=== PATIENT | female | born 1930 | race Caucasian/White ===

== ENCOUNTER 2017-10-13 08:02 | Inpatient (IN) | payer MEDICARE, MEDICAID ==
[2017-10-13] MEDS ORDERED: Sodium Chloride 0.9% 1,000 ML IV ONE ×3 (08:22→09:05)
[2017-10-13] MEDS ORDERED: Metoclopramide 5 mg/mL 2mL Vial IVP STA (08:29)
[2017-10-13] MEDS ORDERED: Piperacillin Sodium/Tazobact 3.375 gm Vial IV ONE (08:38)
[2017-10-13 08:45] LABS: % BASOPHILS 0.1 % (0.0-2.0); % EOSINOPHILS 0.9 % (0.0-5.0); % LYMPHOCYTES 16.6 % (20.0-50.0); % MONOCYTES 7.4 % (2.0-10.0); EOSINOPHILE ABSOLUTE 0.1 Th/cmm (0.1-0.4); LYMPHOCYTE ABSOLUTE 1.2 Th/cmm (1.5-3.0); MEAN CELL VOLUME 94.1 fl (81-100); MEAN CORPUSCULAR HEMOGLOBIN 29.3 pg (27.0-31.0); MEAN CORPUSCULAR HGB CONC 31.1 pg (28.0-36.0); MEAN PLATELET VOLUME 9.8 fl; MONOCYTE ABSOLUTE 0.6 Th/cmm (0.3-1.0); NEUTROPHILE ABSOLUTE 5.6 Th/cmm (1.8-8.0); RED BLOOD COUNT 2.24 Mil/cmm (3.80-5.20); RED CELL DISTRIBUTION WIDTH 19.2 % (11.5-20.0)
[2017-10-13 08:48] LABS: HEMOGLOBIN 6.6 gm/dL (12-16)
[2017-10-13 08:49] LABS: HEMATOCRIT 21.1 % (41.0-60); PLATELET COUNT 281 Th/cmm (150-400); WHITE BLOOD COUNT 7.5 Th/cmm (4.8-10.8)
[2017-10-13 08:55] LABS: ALB/GLOB RATIO 1.2 (1.0-1.8); ALBUMIN 3.5 gm/dL (3.7-5.3); ALKALINE PHOSPHATASE 134 U/L (34-104); ANION GAP 15.8 (7.0-16.0); BILIRUBIN,TOTAL 0.3 mg/dL (0.3-1.0); CALCIUM SERUM 10.1 mg/dL (8.6-10.3); CARBON DIOXIDE 30.1 mEq/L (21.0-31.0); CHLORIDE 109 mEq/L (98-107); CREATININE - SERUM 0.9 mg/dL (0.6-1.2); GLUCOSE 253 mg/dL (70-105); POTASSIUM SERUM 3.9 mEq/L (3.5-5.1); SGOT 46 U/L (13-39); SGPT/ALT 37 U/L (7-52); SODIUM SERUM 151 mEq/L (136-145); TOTAL PROTEIN,SERUM 6.5 gm/dL (6.0-8.3)
[2017-10-13 08:56] LABS: CHOLESTEROL 96 mg/dL (<200); HDL -HIGH DENSITY LIPOPROTEIN 27 mg/dL (23-92); TRIGLYCERIDES 245 mg/dL (<150)
[2017-10-13 08:59] LABS: BUN - UREA NITROGEN 91 mg/dL (7-25)
[2017-10-13] MEDS ORDERED: Pantoprazole 80 MG in Sodium Chloride 0.9% 100 ML IV SCH (09:00)
[2017-10-13 09:05] LABS: ALB/GLOB RATIO 1.3 (1.0-1.8); ALBUMIN 3.3 gm/dL (3.7-5.3); BILIRUBIN,DIRECT 0.1 mg/dL (0.0-0.2); BILIRUBIN,TOTAL 0.3 mg/dL (0.3-1.0); TOTAL PROTEIN,SERUM 5.9 gm/dL (6.0-8.3)
--- NOTE | 2017-10-13 09:16 | Diagnostic Imaging Report ---
CHEST X-RAY: AP view INDICATION: Pneumonia COMPARISON: None FINDINGS: Chronic lung changes are seen with no focal consolidation or effusions. Heart size is normal. Degenerative changes of the spine are noted. IMPRESSION: Chronic lung changes with no focal consolidation identified. Atherosclerotic vascular disease.
[2017-10-13] MEDS ORDERED: Morphine Sulfate 2 mg/mL 1mL Syr IVP PRN (09:20)
[2017-10-13] MEDS ORDERED: Mag Sulfate 2gm/50mL Premix 2 GM/50 ML BAG IV PRN (09:20)
--- NOTE | 2017-10-13 10:37 | History & Physical ---
ADMIT DATE: 10/13/2017 CHIEF COMPLAINT: Diabetes, out of control and severe decline. HISTORY OF PRESENT ILLNESS: The patient is an 86-year-old female, who is a patient of mine at shelter facility. She has a history of diabetes along with dysphagia, anxiety disorder, mood disorder and dementia and dyslipidemia. She was found to be extremely lethargic at the facility. Her blood sugars were over 500s and she declined as far as her mood and overall she started to become very weak. She was sent to the hospital where she was found to be in sepsis. PAST MEDICAL HISTORY: Significant for dyslipidemia, coronary artery disease, diabetes, and dementia. FAMILY HISTORY: Noncontributory. ALLERGIES: She is allergic to hydromorphone, morphine, and promethazine. SURGICAL HISTORY: She does have a history of cardiac surgery in the past. MEDICATIONS: All medications are reviewed and reconciled. She is mostly n.p.o. right now. She does have a history of G-tube. REVIEW OF SYSTEMS: GENERAL: Positive for recent fatigue, worsening confusion, and overall lethargy. HEENT: No recent head trauma, change in vision, taste, hearing, or smell. Oral, no recent pain or discharge. NECK: No recent tracheal deviation. CARDIOVASCULAR: She has history of hypertension and coronary artery disease. SKIN: No recent rashes. PSYCHIATRIC: She has history of depression and mood disorder. NEUROLOGIC: No history of recent stroke or seizure. MUSCULOSKELETAL: Positive history of unsteady gait. RESPIRATORY: No history of recent COPD exacerbation or asthma. PHYSICAL EXAMINATION: VITAL SIGNS: Temperature 97.9 degrees, heart rate is , respirations are 16, blood pressure 87/39 and currently in no pain. GENERAL: No acute distress. She is not awake or alert. She does awaken to physical stimulus, but goes back to sleep. HEENT: No acute issues. NECK: Trachea is midline. No JVD. CARDIOVASCULAR: She is in sinus tachycardia. ABDOMEN: Nontender, nondistended. RESPIRATORY: Decreased breath sounds bilaterally. PSYCHIATRIC: No psychosis or hallucinations. NEUROLOGIC: She is unable to participate. EXTREMITIES: There is no edema. LABORATORY DATA: Sodium 151, potassium 3.9, chloride 109, bicarb 30.1, BUN 91, creatinine 0.9. Lactic acid is 3.71. BNP is 118. White count is 7.5, hemoglobin 6.6, and platelet count is 281,000. ASSESSMENT: 1. Septic shock. 2. Hypovolemic hypernatremia. 3. Diabetes mellitus, out of control. 4. Mild malnutrition. 5. Metabolic encephalopathy. 6. Coronary artery disease. 7. Dyslipidemia. 8. Anemia of chronic illness. PLAN: The patient has been started on vancomycin and Zosyn. Dr. Hirsch has been consulted for ID and Dr. Jose C Hirsch has been consulted for Pulmonary. She has been ordered one unit PRBC. Follow up on blood cultures. I have ordered a UA as well. Chest x-ray seems to be negative. Continue fingerstick blood sugars. She will need aggressive hydration. She is going to the ICU. Prognosis is poor. [facility]# [id number]
--- NOTE | 2017-10-13 10:46 | ER Physician Documentation ---
DATE OF SERVICE: 10/13/2017 An 86-year-old female patient, triage nurse was Ronal, the patient's date of is 1930, allergy to MDX hydromorphone, MDX morphine, MDX promethazine. As to what these causes the patient is not known. The patient was seen by the financial institution president, our triage nurse who took the vital signs. Temperature was 97.9, pulse of 109, respirations 14, blood pressure was low 81/39. The patient was given 1000 mL of normal saline fluid to be running open. Height of 5 feet 5 inches, weight of 185 inches. HISTORY OF PRESENT ILLNESS: The history was obtained from the patient's nurse directly from the place where she came that the patient is a known diabetic patient, diabetic type 2. She has dementia. She has muscle weakness. She has evidence of dysphagia. [facility] our institution, [facility] because the patient had hyperglycemia. Initial blood sugar was 489 mg percentage at 6 o'clock in the morning, the patient was given 10 units of insulin, and after half an hour at 0630, repeated the blood sugar, it was 530, and hence by the instruction of the patient's doctor, the patient was referred to this institution, and immediately our nurse, Ronal was kind enough to get the blood sugar that was done, it was 255 mg percentage. I have also immediately went and examined the patient. Oxygen saturation of the patient was 97% and the patient has a G-tube feeding for which she gets a feeding. The patient is not in a position to give any history. The patient brought in some records from [facility], at which time she was admitted on 06/15/2017. At that time, the patient was admitted by Leonardo Hardin D.O., doctor of osteopathic doctor. An 86-year-old female patient with CAD, dementia, multiple CVA, and the patient has altered mental status. The patient was living at the nursing facility and the patient was brought to that hospital, [facility]. The patient had a history of acute renal failure, elevated lactate of 4, she was in septic status and the patient was given several boluses and started on empiric antibiotics in the Emergency Room, and Dr. Hardin was covering for Dr. Chavez and advised that the patient to be admitted. The patient's other past history, this is taken from the records that I obtained from the other hospital showing that the patient has coronary artery disease. She is status post PCI, PCI stands for percutaneous coronary intervention, that means angioplasty, probably the patient has a stent, now it is almost 90+ percent, the patient has a stent placement done. The patient is known to have cerebrovascular accident. It seems the patient is bedbound. The patient has hypertensive heart disease, dementia, hypothyroidism, diabetes mellitus. PAST SURGICAL HISTORY: Includes history of cholecystectomy and . Insulin, the patient was normally getting 100 units of Levemir that is detemir 40 units subq at bedtime and coverage with 2, 4, 6, 8, 10 units from 150-202, 201-254, 251-306, 301-358, 351-410 units. Over 401, call doctor. It seems that the patient's medications 3 months ago, the patient was taking the following medications, which included melatonin 5 mg tablet, ferrous sulfate, potassium chloride, Xalatan eyedrops, Lasix 20 mg, and memantine 10 mg p.o. b.i.d. The patient was evaluated by me and the patient once again is not in a position to give any further history. REVIEW OF SYSTEMS: Could not be obtained because the patient is completely lethargic. She has eyeballs, which are sunken. She appears to be pale and she has a wish of her healthcare directive living will saying that "my children, grandchildren, and siblings including my prior spouse to give my goodbyes, I would like a Spiritism service with many andre, and my children are to decide my service details together. My personal belongings are to be divided between my children including my personal assets, money, ___. PHYSICAL EXAMINATION: GENERAL: The patient appears to be of lethargic, only responding to painful stimuli. She appears to be pale. Eyeballs are slightly bulging, but not exophthalmus is present. NECK: Neck veins are not distended. Carotids are normal, normal uplift without any bruit. EXTREMITIES: No cyanosis, petechia, ecchymosis. No edema over the legs. Legs have contractures. Patient's plantars are responding in bidirectional fashion, left one and right one sometimes is downgoing. The patient has no edema, no cyanosis, no petechia, ecchymosis. MUSCULOSKELETAL: On general physical exam, does not move any hands and there are no tremors are noted. There is no evidence of any external injury. There is no evidence of any fracture. There is no evidence of any meningeal signs. There is no evidence of any lymphadenopathy. CHEST: Reveals trachea to be central, decrease in air entry in both lungs, and few crackles heard in both lung cruz, but once again markedly decreased air entry, and despite telling loudly to the patient about taking a deep breath, she was hardly able to take a deep breath, so will get a chest x-ray to follow the patient's lung status. The patient's TSH level in the past was 2.05, which was within normal limits. At one point, her BUN was 41 and creatinine was 0.73 and this was close to 08/20/2017, that means more than 1-1/2 months ago, she had prerenal azotemia and her electrolytes showed sodium 138, potassium 4.4, chloride of 95, CO2 of 31,calcium 98, and BUN and creatinine ratio is high at 56.2. ___ was 6.2, protein level of 6.8, bilirubin direct was 0.10 and albumin was 3.6. We ordered EKG level, let me read the EKG for you, EKG shows normal sinus rhythm and there is a left axis deviation, not definitely left anterior fascicular block is seen, there are T-wave changes seen from V1, V2 are inverted and minor nonspecific ST changes seen, could be compatible with ischemia, and anterior wall also looks like there is almost evidence of low voltage, perhaps secondary to hypothyroidism. The patient on examination of the abdomen is soft, benign, and negative. Wearing a diaper. The patient has a G-tube in place and liver and spleen not enlarged. No free fluid in the abdominal cavity. Central nervous system is as I mentioned earlier. Genitourinary system, there is no tenderness at the costovertebral angle noted. The patient's history from other places was reviewed and diagnosis with dementia and also will be mentioned the final diagnosis. There is no evidence of any peripheral vascular disease. Peripheral pulses are faint, but present. Peripheral vascular disease may be present, but no deep vein thrombophlebitis is seen. No cellulitis is noted. There is no evidence of any fracture or bleeding, etc. FINAL DIAGNOSES: The patient has uncontrolled diabetes mellitus, most likely secondary to infection, may be urinary tract infection, may be pneumonia, it is more likely probability. Other diagnoses includes the patient is comatose, the patient has dehydration, the patient has prerenal azotemia in the past, so right now also looks like she may be in prerenal azotemia, looks like the patient may be in sepsis. She has a history of cerebrovascular accident, history of hypertension, but right now the blood pressure is 81, so she has hypotension. She is known to have hypothyroidism, but I do not see that she is getting any thyroid medication. She has dysphagia. I am not sure why she has dysphagia. In the past, she has unsteady gait, but I do not think that the patient is currently in a condition to walk and she has muscle weakness and dysphagia. It is probable that the patient may be having gastroesophageal reflux disease and gastritis, so we will give the patient some Protonix 40 mg a day through the G-tube and the patient will need admission to the hospital. Other labs workup has been ordered. So, that is the final diagnoses and we will wait for the lab results to come, once the lab results come, I will dictate the addendum report. ADDENDUM FOLLOWUP ADDENDUM REPORT I just got the lab results; sodium 151, potassium 3.9, chloride is 109, CO2 is 33.1, anion gap is 15.8, glucose is 253, and BUN is 91. Albumin is 3.5. AST is 46, ALT is 37, alkaline phosphatase is 134. Lipid profile shows cholesterol is 96, triglycerides are 245, HDL is 27, and LDL is 40. Magnesium is 2.6. Lactic acid is 3.7. BNP is 118. Albumin is 3. The patient's neutrophils were 75. FINAL DIAGNOSES: 1. Septic shock with lactic acidosis. 2. Prerenal azotemia. 3. Anemia, most likely be secondary to either upper gastrointestinal bleeding. We will check the stool for occult blood and we will aspirate the gastric contents from the G-tube and if needed upper endoscopy will be done and the patient will get 2 units of blood. The patient is getting 200 mL of fluid per hour. The patient might need at least 3 liters of fluid to my knowledge and more as per Dr. Chavez. Blood transfusion has been started, one unit has been given. The patient might need another 2 units of blood minimum and magnesium which is 2.6 will definitely fall; and antibiotic, I have told them to give the patient as much as fast as possible. The patient's other diagnoses are dementia, hypertension, hypothyroidism, and all other diagnoses that were mentioned earlier holds true. The patient's other diagnoses includes dementia, muscle weakness and history of hypertension, history of PCI. The patient has G-tube in place and the patient had anemia before, the patient had renal failure, but the BUN was less than 40 at that time, little more than 35. Dr. Chavez was called, he is right here, kind enough to come right away and see the patient and admit the patient under his service. He will admit the patient in the ICU and thanks to all my nurses here to help me to take care of this patient. JOB# [id number]
[2017-10-13] MEDS: Sodium Chloride 0.45% 1,000 ML IV SCH ×2 (11:00→16:52)
[2017-10-13 11:14] LABS: MAGNESIUM 2.6 mg/dL (1.9-2.7)
[2017-10-13] MEDS: INSULIN ASPART SLIDING SCALE 100 UNITS/ML UNIT SUBQ SCH ×3 (11:45→21:04)
[2017-10-13 12:56] VITALS: BP 97/51
[2017-10-13] MEDS ORDERED: VTE Chemical Prophylaxis Screen/Admission MC PRN (14:00)
[2017-10-13] MEDS: Pantoprazole 80 MG in Sodium Chloride 0.9% 100 ML IV SCH (14:20)
--- NOTE | 2017-10-13 14:31 | Transfer Summary ---
DATE OF TRANSFER: 10/13/2017 ADDENDUM FOLLOWUP ADDENDUM REPORT I just got the lab results; sodium 151, potassium 3.9, chloride is 109, CO2 is 33.1, anion gap is 15.8, glucose is 253, and BUN is 91. Albumin is 3.5. AST is 46, ALT is 37, alkaline phosphatase is 134. Lipid profile shows cholesterol is 96, triglycerides are 245, HDL is 27, and LDL is 40. Magnesium is 2.6. Lactic acid is 3.7. BNP is 118. Albumin is 3. The patient's neutrophils were 75. FINAL DIAGNOSES: 1. Septic shock with lactic acidosis. 2. Prerenal azotemia. 3. Anemia, most likely be secondary to either upper gastrointestinal bleeding. We will check the stool for occult blood and we will aspirate the gastric contents from the G-tube and if needed upper endoscopy will be done and the patient will get 2 units of blood. The patient is getting 200 mL of fluid per hour. The patient might need at least 3 liters of fluid to my knowledge and more as per Dr. Chavez. Blood transfusion has been started, one unit has been given. The patient might need another 2 units of blood minimum and magnesium which is 2.6 will definitely fall; and antibiotic, I have told them to give the patient as much as fast as possible. The patient's other diagnoses are dementia, hypertension, hypothyroidism, and all other diagnoses that were mentioned earlier holds true. The patient's other diagnoses includes dementia, muscle weakness and history of hypertension, history of PCI. The patient has G-tube in place and the patient had anemia before, the patient had renal failure, but the BUN was less than 40 at that time, little more than 35. Dr. Chavez was called, he is right here, kind enough to come right away and see the patient and admit the patient under his service. He will admit the patient in the ICU and thanks to all my nurses here to help me to take care of this patient. JOB# [id number]
[2017-10-13 17:38] LABS: URINE BILIRUBIN NEGATIVE (NEGATIVE); URINE BLOOD NEGATIVE (NEGATIVE); URINE GLUCOSE (UA) NEGATIVE (NEGATIVE); URINE KETONE NEGATIVE (NEGATIVE); URINE LEUKOCYTE ESTERASE NEGATIVE (NEGATIVE); URINE MICROSCOPIC INDICATED? YES; URINE NITRATE NEGATIVE (NEGATIVE); URINE PROTEIN NEGATIVE (NEGATIVE); URINE SOURCE CATH; URINE UROBILINOGEN 0.2 E.U./dL (0.2 - 1.0)
[2017-10-13 17:47] LABS: URINE CLARITY CLEAR (CLEAR); URINE COLOR YELLOW
[2017-10-13 17:48] LABS: URINE BACTERIA NONE SEEN /hpf (NONE SEEN); URINE EPITHELIAL CELLS NONE SEEN /lpf (FEW); URINE RBC NONE SEEN /hpf (0-5); URINE WBC NONE SEEN /hpf (0-5)
[2017-10-13] MEDS ORDERED: Magnesium Hydroxide (MOM) 30 mL UDC PO ONE (17:54)
[2017-10-13] MEDS ORDERED: Lactulose 10 Gm/15 mL 30mL UDC PO ONE (18:00)
[2017-10-13 19:49] LABS: % BASOPHILS 0.1 % (0.0-2.0); % EOSINOPHILS 2.3 % (0.0-5.0); % MONOCYTES 6.6 % (2.0-10.0); EOSINOPHILE ABSOLUTE 0.1 Th/cmm (0.1-0.4); LYMPHOCYTE ABSOLUTE 1.1 Th/cmm (1.5-3.0); MEAN CELL VOLUME 93.9 fl (81-100); MEAN CORPUSCULAR HEMOGLOBIN 29.4 pg (27.0-31.0); MEAN CORPUSCULAR HGB CONC 31.3 pg (28.0-36.0); MEAN PLATELET VOLUME 9.3 fl; MONOCYTE ABSOLUTE 0.4 Th/cmm (0.3-1.0); NEUTROPHILE ABSOLUTE 4.6 Th/cmm (1.8-8.0); RED BLOOD COUNT 2.56 Mil/cmm (3.80-5.20); RED CELL DISTRIBUTION WIDTH 16.3 % (11.5-20.0); WHITE BLOOD COUNT 6.2 Th/cmm (4.8-10.8)
[2017-10-13 19:50] LABS: HEMOGLOBIN 7.5 gm/dL (12-16)
[2017-10-13 19:51] LABS: HEMATOCRIT 24.1 % (41.0-60)
[2017-10-13 19:52] LABS: PLATELET COUNT 191 Th/cmm (150-400)
[2017-10-13 19:59] LABS: ANION GAP 10.8 (7.0-16.0); BUN - UREA NITROGEN 63 mg/dL (7-25); CALCIUM SERUM 7.8 mg/dL (8.6-10.3); CARBON DIOXIDE 23.8 mEq/L (21.0-31.0); CHLORIDE 117 mEq/L (98-107); CREATININE - SERUM 0.7 mg/dL (0.6-1.2); POTASSIUM SERUM 3.6 mEq/L (3.5-5.1); SODIUM SERUM 148 mEq/L (136-145)
[2017-10-13 20:00] LABS: GLUCOSE 143 mg/dL (70-105)
[2017-10-13] MEDS: D5-0.45NS 1,000 ML IV SCH (21:35)
[2017-10-14] MEDS: Pantoprazole 80 MG in Sodium Chloride 0.9% 100 ML IV SCH ×2 (00:20→09:40)
[2017-10-14 02:12] LABS: % BASOPHILS 0.1 % (0.0-2.0); % EOSINOPHILS 2.4 % (0.0-5.0); % LYMPHOCYTES 15.4 % (20.0-50.0); % MONOCYTES 6.1 % (2.0-10.0); EOSINOPHILE ABSOLUTE 0.1 Th/cmm (0.1-0.4); HEMOGLOBIN 8.9 gm/dL (12-16); LYMPHOCYTE ABSOLUTE 0.7 Th/cmm (1.5-3.0); MEAN CELL VOLUME 84.4 fl (81-100); MEAN CORPUSCULAR HEMOGLOBIN 26.4 pg (27.0-31.0); MEAN CORPUSCULAR HGB CONC 31.2 pg (28.0-36.0); MONOCYTE ABSOLUTE 0.3 Th/cmm (0.3-1.0); NEUTROPHILE ABSOLUTE 3.7 Th/cmm (1.8-8.0); PLATELET COUNT 172 Th/cmm (150-400); RED BLOOD COUNT 3.39 Mil/cmm (3.80-5.20); RED CELL DISTRIBUTION WIDTH 23.7 % (11.5-20.0)
[2017-10-14 02:15] LABS: HEMATOCRIT 28.7 % (41.0-60); WHITE BLOOD COUNT 4.8 Th/cmm (4.8-10.8)
--- NOTE | 2017-10-14 02:32 | Progress Notes ---
DATE: 10/13/2017 REASON FOR CONSULTATION: Help critically sick patient with multisystem issues. CONSULT NOTE: This is an 86-year-old female who is a patient of Dr. Chavez, lives in a convalescent home, and the patient basically was admitted up here because of: 1. Altered state of mind. 2. Sugar was very high. 3. She was quite obtunded as well as some possibly sepsis. Hence I was asked to see this patient for further care and necessary treatment. The patient is barely arousable, but meaningful information from the patient is not available, and she is moaning and groaning, but otherwise unremarkable. The patient has been bedridden, has some form of chronic encephalopathy in the patient including dementia, has a G-tube and also [place] diabetic mellitus and though meaningful history from the patient is not available, was found to have a sugar of 500 plus with extremely weak, more decrease in alertness; hence the patient was admitted for further care and necessary treatment. PAST MEDICAL HISTORY: History of dementia, history of Alzheimer's, history of mood swings issues. History of dyslipoproteinemia, history of coronary artery disease. ALLERGIC TO HYDROMORPHONE, MORPHINE, AND PROMETHAZINE. SURGICAL HISTORY: None at this particular time available PHYSICAL EXAMINATION: GENERAL: This is an elderly looking female, appears to be chronically sick looking, not in acute respiratory distress. VITAL SIGNS: The patient's recorded vitals are temperature is 96.6, blood pressure is 105/56, and saturation 100% on 2 liters. HEENT: Head is essentially unremarkable. Pupils seemingly reactive to light. Conjunctivae are quite pallor. Oral cavity shows very poor dental hygiene. Throat could not be seen very well. NECK: Veins not visualized. NECK: No palpable lymphadenitis. CHEST: Shows diminished air entry. Occasional secretory noise, otherwise unremarkable. ABDOMEN: Shows slightly distended G-tube. EXTREMITIES: Shows some flexion contraction with some edematous changes in all 4 extremities. LABORATORY DATA: The patient's laboratory studies shows white count is 7.5, hemoglobin 6.6, BUN is 91. Lactic acid 4.3 with sugar at this time was 523, and the patient's electrolytes show albumin is 3.3. Triglycerides 245. TSH is 8.43. Urine does show fairly clear with a positive occult blood testing. IMPRESSION: 1. The patient has significant dehydration secondary to severe hypoglycemia, ketone to be tested. 2. Severe constipation. 3. Severe anemia shows pattern is not clearcut. 4. Underlying dementia with dyslipoproteinemia. PLANS AND SUGGESTIONS: Appreciate excellent management of Dr. Chavez, will continue current rate IV. As the patient's CT indicates significant constipation, ____ which will not be cleaned by tap water. We will go for a strong laxity from the top. We agree with transfusion. We will continue sliding scale, will repeat some of the parameters back again tomorrow including lactic acid and see how it is, and we will be glad to follow along with you. JOB# [id number]
--- NOTE | 2017-10-14 02:56 | Consultation ---
DATE OF CONSULTATION: 10/13/2017 REFERRING PHYSICIAN: Dr. Chavez. REASON FOR CONSULTATION: Sepsis, septic shock. HISTORY OF PRESENT ILLNESS: The patient is an 86-year-old female with a past medical, coronary artery disease, status post replacement, dementia, diabetes mellitus type 2, brought in from nursing facility for generalized weakness. The patient was also performed paraplegic. On initial evaluation, the patient was hypotensive and sepsis workup was performed. Lactic acid was 4+. The patient was diagnosed with septic shock and was given in the ER and patient was started on vancomycin and Zosyn. The patient's blood pressure improved and ID consult was called for further antibiotic management. PAST MEDICAL HISTORY: Diabetes mellitus type 2, dementia, anemia. Uncontrolled diabetes. ALLERGIES: HYDROMORPHONE, WARFARIN. MEDICATIONS: As per medication reconciliation sheet. Antibiotic laird, the patient is on vancomycin and Zosyn. Review of systems were unable to obtain. SOCIAL HISTORY: The patient lives in a nursing facility. No history of smoking, alcohol or drug use. FAMILY HISTORY: Not available. REVIEW OF SYSTEMS: Unable to obtain, although the patient was hypotensive. No fever, no chills. No cough, no shortness of breath. PHYSICAL EXAMINATION: VITAL SIGNS: Shows temperature is 97.6, pulse 78, respirations 16, blood pressure 115/55. Oxygen saturation 100%. GENERAL: Appears uncomfortable, lying in bed. HEENT: Head is normocephalic, atraumatic. Oral cavity moist. [place] tongue. Eyes: Pallor is present, no icterus. Pupils PERRLA, EOMI. NECK: Supple, no JVD, no carotid bruit. Trachea in midline. CHEST: Bilateral breath sounds. No crackles or wheezing. HEART: S1, S2 within normal limits. Regular rhythm. No murmur, no gallop. ABDOMEN: Soft, nontender, nondistended. Bowel sounds present. EXTREMITIES: No cyanosis, no edema. NEUROLOGIC: Unresponsive, quite lethargic. LABORATORY DATA: Current lab shows WBC count is 6200, hemoglobin 7.5, hematocrit 24.1, platelets of 191,000. Sodium 148, potassium 3.6, chloride is 117, bicarb 24, bun is 66, creatinine 0.7, glucose 143. Lactic acid 1.28. Stool for occult blood culture is positive. Blood cultures are pending. Chest x-ray is negative. IMPRESSION: 1. Septic shock, improving. 2. Pneumonia, questionable. 3. Diabetes mellitus type, uncontrolled. 4. Dementia. 5. Azotemia. RECOMMENDATIONS: 1. We will continue vancomycin and Zosyn. 2. Followup on sepsis workup. JOB# [id number]
[2017-10-14] MEDS: D5-0.45NS 1,000 ML IV SCH ×3 (05:33→23:56)
[2017-10-14] MEDS: INSULIN ASPART SLIDING SCALE 100 UNITS/ML UNIT SUBQ SCH ×4 (06:31→21:05)
[2017-10-14 08:06] LABS: IRON LC 17 ug/dL (27-139); TIBC (LC) 343 ug/dL (250-450); UIBC 326 ug/dL (118-369)
[2017-10-14 08:33] LABS: ALB/GLOB RATIO 1.1 (1.0-1.8); ALBUMIN 2.6 gm/dL (3.7-5.3); ALKALINE PHOSPHATASE 56 U/L (34-104); ANION GAP 10.6 (7.0-16.0); BILIRUBIN,DIRECT 0.15 mg/dL (0.0-0.2); BILIRUBIN,TOTAL 0.4 mg/dL (0.3-1.0); BUN - UREA NITROGEN 39 mg/dL (7-25); CALCIUM SERUM 7.4 mg/dL (8.6-10.3); CARBON DIOXIDE 23.8 mEq/L (21.0-31.0); CHLORIDE 117 mEq/L (98-107); CREATININE - SERUM 0.6 mg/dL (0.6-1.2); MAGNESIUM 2.1 mg/dL (1.9-2.7); POTASSIUM SERUM 3.4 mEq/L (3.5-5.1); SGOT 35 U/L (13-39); SGPT/ALT 29 U/L (7-52); SODIUM SERUM 148 mEq/L (136-145); TOTAL PROTEIN,SERUM 4.9 gm/dL (6.0-8.3)
[2017-10-14 08:34] LABS: GLUCOSE 260 mg/dL (70-105)
[2017-10-14 08:39] LABS: pH 7.44 (7.35-7.45)
[2017-10-14 08:46] LABS: % BASOPHILS 0.1 % (0.0-2.0); % EOSINOPHILS 2.5 % (0.0-5.0); % LYMPHOCYTES 12.4 % (20.0-50.0); % MONOCYTES 3.6 % (2.0-10.0); % NEUTROPHILS 81.4 % (40.0-80.0); EOSINOPHILE ABSOLUTE 0.1 Th/cmm (0.1-0.4); HEMATOCRIT 28.6 % (41.0-60); HEMOGLOBIN 9.1 gm/dL (12-16); LYMPHOCYTE ABSOLUTE 0.7 Th/cmm (1.5-3.0); MEAN CELL VOLUME 84.5 fl (81-100); MEAN CORPUSCULAR HEMOGLOBIN 26.9 pg (27.0-31.0); MEAN CORPUSCULAR HGB CONC 31.9 pg (28.0-36.0); MEAN PLATELET VOLUME 9.7 fl; MONOCYTE ABSOLUTE 0.2 Th/cmm (0.3-1.0); NEUTROPHILE ABSOLUTE 4.6 Th/cmm (1.8-8.0); PLATELET COUNT 169 Th/cmm (150-400); RED BLOOD COUNT 3.39 Mil/cmm (3.80-5.20); RED CELL DISTRIBUTION WIDTH 22.8 % (11.5-20.0); WHITE BLOOD COUNT 5.6 Th/cmm (4.8-10.8)
[2017-10-14] MEDS ORDERED: Influenza Vaccine 0.5 mL Syr IM ONE (09:00)
--- NOTE | 2017-10-14 09:22 | Diagnostic Imaging Report ---
CHEST X-RAY: AP view INDICATION: Shortness of breath COMPARISON: Chest x-ray 10/13/2017 FINDINGS: Suboptimal lung volumes are noted. There is right mid lung density measuring up to 5 mm. No focal consolidation or effusions. Heart size is normal. Atherosclerosis is noted. IMPRESSION: No focal consolidation identified. Indeterminate Right midlung density measuring up to 5 mm. This may be due to an area of scarring or chronic parenchymal process, however, other pulmonary pathology and a small nodule cannot be excluded. Please correlate with older x-ray examinations, if available. Alternative, short-term follow-up CT chest with provide additional detail and assessment.
--- NOTE | 2017-10-14 09:33 | Diagnostic Imaging Report ---
CT abdomen and pelvis without intravenous contrast Indication: Distended abdomen increased stool Comparison: None, Technique: Axial images were obtained from the lung bases to the bilateral proximal femurs without IV contrast. Coronal reconstructions were made. total DLP: 561, CTDI11.8 FINDINGS: Hypoventilatory changes of the lung bases are noted. Assessment of the solid organs is limited due to lack of IV contrast. No evidence of focal hepatic lesions. There is mild haziness along the pancreaticoduodenal region. The patient is status post cholecystectomy. There is generalized mild prominence of the common bile duct measuring up to 1 cm. No focal splenic lesions. Calcifications along the pancreatic margin the likely due to splenic artery calcifications. No focal adrenal lesions. No evidence of hydronephrosis or nephrolithiasis. Egan catheter and pockets of gas are seen within the urinary bladder. There is severe distal fecal impaction with mass effect upon the urinary bladder. Mild diverticulosis is noted without evidence of diverticulitis. No evidence of appendicitis. A percutaneous gastric feeding tube is noted. Diffuse atherosclerotic vascular disease of the abdominal aorta and branches are noted. No evidence of free air or free fluid. Degenerative changes of spine and pelvis are noted. There is Probable osteopenia. IMPRESSION: Severe distal fecal impaction with mass effect upon the urinary bladder. Mild haziness along the pancreaticoduodenal margins. Inflammatory process in this region cannot be excluded. Please correlate patient's clinical findings and laboratory values. Diverticulosis without evidence of diverticulitis. Egan catheter pockets of gas in the urinary bladder. Percutaneous gastric feeding tube noted. Evidence of prior cholecystectomy. There is mild nonspecific prominence of the common bile duct may be related to patient's cholecystectomy procedure. Diffuse atherosclerotic vascular disease.
--- NOTE | 2017-10-14 09:40 | General Progress Note ---
Subjective - Review of Systems Service Date: 10/14/17 Subjective: Pt seen and eval. She's waking up now and starting to talk. No n,v,d or cp. BP improved. Did not require any vasopressors. No falls or sz. On iv fluids, now on D5-0.5ns. Stool OB positive. All anticoagulation is being held. GI is scheduling a scope. No sz. Afebrile. Status post 1 unit prbc, which was ordered in the ER. Has a GT, but no feedings right now. Objective - Results Result Diagrams: 10/14/17 08:05 10/14/17 08:05 Recent Labs: Laboratory Last Values WBC 5.6 Th/cmm (4.8-10.8) 10/14/17 08:05 RBC 3.39 Mil/cmm (3.80-5.20) L 10/14/17 08:05 Hgb 9.1 gm/dL (12-16) L 10/14/17 08:05 Hct 28.6 % (41.0-60) L 10/14/17 08:05 MCV 84.5 fl (81-100) 10/14/17 08:05 MCH 26.9 pg (27.0-31.0) L 10/14/17 08:05 MCHC Differential 31.9 pg (28.0-36.0) 10/14/17 08:05 RDW 22.8 % (11.5-20.0) H 10/14/17 08:05 Plt Count 169 Th/cmm (150-400) 10/14/17 08:05 MPV 9.7 fl 10/14/17 08:05 Neutrophils % 81.4 % (40.0-80.0) H 10/14/17 08:05 Lymphocytes % 12.4 % (20.0-50.0) L 10/14/17 08:05 Monocytes % 3.6 % (2.0-10.0) 10/14/17 08:05 Eosinophils % 2.5 % (0.0-5.0) 10/14/17 08:05 Basophils % 0.1 % (0.0-2.0) 10/14/17 08:05 Specimen Source Arterial 10/14/17 08:15 Sample Site RB 10/14/17 08:15 pH 7.44 (7.35-7.45) 10/14/17 08:15 pCO2 36.0 mmHg (35.0-45.0) 10/14/17 08:15 pO2 110.0 mmHg (80.0-100.0) H 10/14/17 08:15 HCO3 25.4 mEq/L (20.0-26.0) 10/14/17 08:15 Base Excess 0.6 mEq/L (-3.0-3.0) 10/14/17 08:15 O2 Saturation 98.0 % (92.0-100.0) 10/14/17 08:15 Joao Test NA 10/14/17 08:15 Vent Rate NA 10/14/17 08:15 Inspired O2 21 10/14/17 08:15 Tidal Volume NA 10/14/17 08:15 PEEP NA 10/14/17 08:15 Pressure (ins/psv/peep) NA 10/14/17 08:15 Critical Value SH 10/14/17 08:15 Sodium 148 mEq/L (136-145) H 10/14/17 08:05 Potassium 3.4 mEq/L (3.5-5.1) L 10/14/17 08:05 Chloride 117 mEq/L (98-107) H 10/14/17 08:05 Carbon Dioxide 23.8 mEq/L (21.0-31.0) 10/14/17 08:05 Anion Gap 10.6 (7.0-16.0) 10/14/17 08:05 BUN 39 mg/dL (7-25) H 10/14/17 08:05 Creatinine 0.6 mg/dL (0.6-1.2) 10/14/17 08:05 Est GFR ( Amer) TNP 10/14/17 08:05 Est GFR (Non-Af Amer) TNP 10/14/17 08:05 BUN/Creatinine Ratio 65.0 10/14/17 08:05 Glucose 260 mg/dL (70-105) H D 10/14/17 08:05 POC Glucose 275 MG/DL (70 - 105) H 10/14/17 06:27 Whole Bld Lactic Acid 1.91 mmol/L (0.60-1.99) 10/14/17 08:05 Calcium 7.4 mg/dL (8.6-10.3) L 10/14/17 08:05 Magnesium 2.1 mg/dL (1.9-2.7) 10/14/17 08:05 Iron 17 ug/dL (27-139) L 10/13/17 08:30 TIBC 343 ug/dL (250-450) 10/13/17 08:30 Iron Saturation 5 % (15-55) L 10/13/17 08:30 Unsaturated IBC 326 ug/dL (118-369) 10/13/17 08:30 Total Bilirubin 0.4 mg/dL (0.3-1.0) 10/14/17 08:05 Direct Bilirubin 0.15 mg/dL (0.0-0.2) 10/14/17 08:05 AST 35 U/L (13-39) 10/14/17 08:05 ALT 29 U/L (7-52) 10/14/17 08:05 Alkaline Phosphatase 56 U/L (34-104) 10/14/17 08:05 Ammonia 57 umol/L (16-53) H 10/14/17 08:05 B-Natriuretic Peptide 118.0 pg/mL (5.0-100.0) H 10/13/17 08:30 Total Protein 4.9 gm/dL (6.0-8.3) L 10/14/17 08:05 Albumin 2.6 gm/dL (3.7-5.3) L 10/14/17 08:05 Globulin 2.3 gm/dL 10/14/17 08:05 Albumin/Globulin Ratio 1.1 (1.0-1.8) 10/14/17 08:05 Triglycerides 245 mg/dL (<150) H 10/13/17 08:30 Cholesterol 96 mg/dL (<200) 10/13/17 08:30 LDL Cholesterol Direct 40 mg/dL (75-193) L 10/13/17 08:30 HDL Cholesterol 27 mg/dL (23-92) 10/13/17 08:30 Lipase 42 U/L (11-82) 10/14/17 08:05 TSH 8.23 uIU/ml (0.34-5.60) H 10/13/17 08:30 Urine Source CATH 10/13/17 09:45 Urine Color YELLOW 10/13/17 09:45 Urine Clarity CLEAR (CLEAR) 10/13/17 09:45 Urine pH 7.0 (4.6 - 8.0) 10/13/17 09:45 Ur Specific [place] 1.010 (1.005-1.030) 10/13/17 09:45 Urine Protein NEGATIVE mg/dL (NEGATIVE) 10/13/17 09:45 Urine Glucose (UA) NEGATIVE mg/dL (NEGATIVE) 10/13/17 09:45 Urine Ketones NEGATIVE mg/dL (NEGATIVE) 10/13/17 09:45 Urine Blood NEGATIVE (NEGATIVE) 10/13/17 09:45 Urine Nitrate NEGATIVE (NEGATIVE) 10/13/17 09:45 Urine Bilirubin NEGATIVE (NEGATIVE) 10/13/17 09:45 Urine Urobilinogen 0.2 E.U./dL (0.2 - 1.0) 10/13/17 09:45 Ur Leukocyte Esterase NEGATIVE (NEGATIVE) 10/13/17 09:45 Urine RBC NONE SEEN /hpf (0-5) 10/13/17 09:45 Urine WBC NONE SEEN /hpf (0-5) 10/13/17 09:45 Ur Epithelial Cells NONE SEEN /lpf (FEW) 10/13/17 09:45 Urine Bacteria NONE SEEN /hpf (NONE SEEN) 10/13/17 09:45 Stool Occult Blood POSITIVE (NEGATIVE) H 10/13/17 11:00 Blood Type O POSITIVE 10/13/17 10:36 Antibody Screen NEGATIVE 10/13/17 10:36 Crossmatch See Detail 10/13/17 10:36 - Physical Exam Vitals and I&O: Vital Signs Temp 97.1 F 10/14/17 04:00 Pulse 66 10/14/17 06:00 Resp 16 10/14/17 06:00 BP 109/56 10/14/17 06:00 Pulse Ox 100 10/14/17 06:00 Intake & Output 10/13/17 10/14/17 10/14/17 18:59 06:59 18:59 Intake Total 704.354 3823.833 Output Total 1000 Balance 833.333 482.833 Weight (lbs) 61.235 kg Intake: Intake, IV Amount 773.049 8586.833 D5-0.45NS 1,000 ml @ 125 995.833 mls/hr IV .Q8H [facility] Rx#: [id number] Pantoprazole 80 mg In 162 Sodium Chloride 0.9% 100 ml @ 10 mls/hr IV Q10H [facility] Rx#:[id number] Piperacillin Sodium/ 100 50 Tazobact 3.375 gm In Sodium Chloride 0.9% 50 ml @ 100 mls/hr IV Q6HR [facility] Rx#:[id number] Sodium Chloride 0.45% 1, 733.333 000 ml @ 125 mls/hr IV . Q8H [facility] Rx#:[id number] Blood Product 275 Output: Urine 1000 Other: # Bowel Movements 2 Stool Characteristics Black Black Active Medications: Current Medications Acetaminophen (Tylenol) 650 mg PO Q6H PRN PRN Reason: HEADACHE/TEMP ABOVE 100F Stop: 12/12/17 09:19 Magnesium Sulfate (Magnesium Sulfate Premix) 2 gm in 50 mls @ 25 mls/hr IV DAILY PRN PRN Reason: Magnesium level less than 1.6 Stop: 12/12/17 09:19 Vancomycin HCl 1 gm/ Sodium (Chloride) 250 mls @ 165 mls/hr IV Q24H [facility] Stop: 12/13/17 08:59 Last Admin: 10/14/17 09:11 Dose: 165 mls/hr Piperacillin Sod/Tazobactam (Sod 3.375 gm/ Sodium Chloride) 50 mls @ 100 mls/ hr IV Q6HR [facility] Stop: 12/12/17 11:59 Last Admin: 10/14/17 05:30 Dose: 100 mls/hr Pantoprazole Sodium 80 mg/ (Sodium Chloride) 100 mls @ 10 mls/hr IV Q10H [facility] Stop: 12/12/17 14:59 Last Infusion: 10/14/17 06:32 Dose: 10 mls/hr Dextrose/Sodium Chloride (D5-0.45ns) 1,000 mls @ 125 mls/hr IV .Q8H [facility] Stop: 12/12/17 20:31 Last Admin: 10/14/17 05:33 Dose: 125 mls/hr Insulin Aspart (Novolog Insulin Sliding Scale) 0 units SUBQ ACHS CADE PRN Reason: Protocol Stop: 12/12/17 11:29 Last Admin: 10/14/17 06:31 Dose: 6 units Magnesium Oxide (Mag-Oxide) 400 mg PO BID PRN PRN Reason: Mg less than 1.9 Stop: 12/12/17 09:19 Miscellaneous (Vancomycin Iv Per Pharmacy) 1 ea PRN PRN PRN Reason: PROTOCOL Stop: 12/12/17 09:17 Miscellaneous (Zosyn Iv Per Pharmacy) 1 ea PRN PRN PRN Reason: PROTOCOL Stop: 12/12/17 09:17 Miscellaneous (Vte [employer] Prophylaxis Screen/ Admission) 1 ea PRN PRN PRN Reason: PROTOCOL Stop: 12/12/17 13:59 Ondansetron HCl (Zofran) 4 mg IVP Q6H PRN PRN Reason: Nausea / Vomiting Stop: 12/12/17 09:19 Pneumococcal Polyvalent Vaccine (Pneumovax) 0.5 ml IM .ONCE ONE Stop: 10/14/17 10:01 General: No acute distress HEENT: Atraumatic, PERRLA, EOMI Neck: Supple, no JVD Cardiovascular: Regular rate, Normal S1, Normal S2 Lungs: Other (Decreased BS bl) Abdomen: Bowel sounds, Soft, no Tender, no Hepatomegaly Extremities: no Clubbing Neurological: Sensation intact Skin: no Rash, no Breakdown Psych/Mental Status: Other (No pyshosis) - Procedures Procedures: Procedures Procedure Code Date COLONOSCOPY AND BIOPSY 83519 03/14/12 COLONOSCOPY W/LESION REMOVAL 22319 03/14/12 EGD BIOPSY SINGLE/MULTIPLE 83701 03/14/12 ENDO RECTUM POLYPECTOMY 48.36 03/14/12 ENDOSC POLYPECTOMY OF LG INTEST 45.42 03/14/12 ESOPHAGOGASTRODUODENOSCOPY [EGD] W/CLOSED BIOPSY 45.16 03/14/12 LESION REMOVAL COLONOSCOPY 26850 03/14/12 PACKED CELL TRANSFUSION 99.04 03/14/12 Assessment/Plan - Assessment Assessment: Septic shock Hypovolemic Hypernatremia DM-OOC Mild Manlut Severe anemia with possible GI bleed ME CAD Dyslipid - Plan Plan: PT seen by ID, GI, and Pulm. On aggressive hydration. She's not on any vasopressors right now. GI scheduling EGD as stool OB is positive. Pt had a colonoscopy in may 2017 in [facility]. On Vanceo and Zosyn. On FSBS and riss. On iv d5-0.5ns and protonix drip. FU on chem 7 and cbc. FU on cultures. Nutritional Asmnt/Malnutr-PDOC - Dietary Evaluation Malnutrition Findings (Please click <Entered> for more info): Nutritional Asmnt/Malnutrition Start: 10/13/17 13: 06 Text: Status: Complete Freq: Document 10/13/17 13:06 [email or web address] (Rec: 10/13/17 13:17 IMANI JONATHON- [email or web address]) Nutritional Asmnt/Malnutrition Patient General Information Nutritional Screening High Risk Consult Diagnosis Septic shock Pertinent Medical Hx/Surgical Hx diabetes, dyslipidemia, CAD, dementia Subjective Information Consult received for wound present on admissino and marcus scale <12. Patient admitted from [facility] with hyperglycemia (489 BG, then 533). Patient lying in bed at time of visit. Current Diet Order/ Nutrition Support NPO Patient / S.O Not Indicated Pertinent Medications NOvolog, Mag-oxide, abx, zofran Pertinent Labs 10/13: Na 151, BUN 91, glucose 139-255, AST 43, albumin 3.3, TAG 245 Nutritional Hx/Data Height 1.65 m Height (Calculated Centimeters) 165.1 Current Weight (lbs) 61.235 kg Weight (Calculated Kilograms) 61.2 Weight (Calculated Grams) 76719.0 [place] Body Weight 125 % [place] Body Weight 108 Body Mass Index (BMI) 22.4 Recent Weight Change No Weight Status Approriate GI Symptoms GI Symptoms None Last BM None noted since admission Difficult in: None Food Allergies No Cultural/Ethnic/Mandaen Belief none indicated Skin Integrity/Comment: Marcus Estimated Nutritional Goals BEE in Kcals: Using Current wt Calories/Kcals/Kg 27-32 kcal/kg- using 61.3 kg Current body weight- sepsis Kcals Calculated ~1176-5031 kcal/day Protein: Using Current wt Protein g/k.2-1.5 gm/kg - Sepsis Protein Calculated ~75-92 gm/day Fluid: ml ~2401-8309 ml/day (1 ml/kcal) Nutritional Problem 2. Problem Problem Altered nutrition related lab values related to Etiology uncontrolled hyperglycemia aeb Signs/Symptoms: glucose 139-255, 1. Problem Problem Inadequate energy intake related to Etiology withholding of nutrition at this time with NPO diet order aeb Signs/Symptoms: meeting <25% of estimated nutrient needs. Intervention/Recommendation Comments 1. Due to hx dysphagia and Gtube, when medically appropriate, start Diabetisource AC at goal of 55 ml/hr to provide 1320 ml volume, 1584 kcal, 79 gm protein. 2. Adjust insulin regimen per MD for optimal glycemic control. Expected Outcomes/Goals Expected Outcomes/Goals meets >75% of estimated nutrient needs, improved skin integrity, nutrition related labs normalize, F/U HR 2-3 days 10/15-
[2017-10-14] MEDS ORDERED: Pneumococcal Vaccine 0.5 mL Vial IM ONE (10:00)
[2017-10-14 17:12] LABS: % BASOPHILS 1.2 % (0.0-2.0); % EOSINOPHILS 3.5 % (0.0-5.0); % MONOCYTES 3.5 % (2.0-10.0); % NEUTROPHILS 79.8 % (40.0-80.0); BASOPHILE ABSOLUTE 0.1 Th/cumm (0-0.2); EOSINOPHILE ABSOLUTE 0.2 Th/cmm (0.1-0.4); HEMATOCRIT 28.7 % (41.0-60); HEMOGLOBIN 9.3 gm/dL (12-16); LYMPHOCYTE ABSOLUTE 0.7 Th/cmm (1.5-3.0); MEAN CELL VOLUME 84.2 fl (81-100); MEAN CORPUSCULAR HEMOGLOBIN 27.1 pg (27.0-31.0); MEAN CORPUSCULAR HGB CONC 32.2 pg (28.0-36.0); MEAN PLATELET VOLUME 9.4 fl; MONOCYTE ABSOLUTE 0.2 Th/cmm (0.3-1.0); NEUTROPHILE ABSOLUTE 4.8 Th/cmm (1.8-8.0); PLATELET COUNT 184 Th/cmm (150-400); RED BLOOD COUNT 3.41 Mil/cmm (3.80-5.20); RED CELL DISTRIBUTION WIDTH 24.2 % (11.5-20.0)
[2017-10-14 20:41] LABS: A1C % 5.4 % (4.0-6.0)
--- NOTE | 2017-10-14 22:31 | Progress Notes ---
DATE: 10/14/2017 PULMONARY/CRITICAL CARE PROGRESS NOTE PROBLEM LIST: 1. Acute septicemia. 2. Acute severe hypoglycemia. 3. Constipation. 4. Underlying history of diabetes mellitus and history of dementia. SYMPTOMS: Nil. Feeling okay, though a little bit more verbal related to yesterday. According to RN, she had quite a big bowel movement and possibly schedule for EGD tomorrow. PHYSICAL EXAMINATION: VITAL SIGNS: Temperature is 97.1, blood pressure 106/56, saturation 100% on 2 liters. NECK: Veins not visualized. CHEST: Shows diminished air entry with occasional rhonchi. ABDOMEN: Much softer than yesterday. LABORATORY DATA: The patient's white count is 5.6, hemoglobin 9.1 after transfusion and the patient's pO2 is 110 and this is on room air. Sodium is 148, potassium is 3.3, and the patient's sugar is still labile. Stool occult blood one time is positive. IMPRESSION: The patient clinically appears to be stable, improving, though septic source is not clearcut, and so far everything is negative including MRSA of nares which has been negative. PLANS AND SUGGESTIONS: Okay with current treatment. Start ____ once cleared by nothing endoscopically and continue other treatment for the next 24-48 hours and go from there. JOB# [id number]
--- NOTE | 2017-10-15 01:35 | Consultation ---
DATE OF CONSULTATION: 10/14/2017 INPATIENT GASTROINTESTINAL CONSULTATION REASON FOR CONSULTATION: Anemia and melena. CONSULTING PHYSICIAN: Dr. Chavez. HISTORY OF PRESENT ILLNESS: The patient is an 86-year-old female with past medical history significant for type 2 diabetes, dysphagia, anxiety disorder, dementia, dyslipidemia, who was brought in from her nursing home facility with weakness. The patient was found to have blood sugars over 500 at the nursing facility as well as being more acutely weak than her usual state and thus she was brought into the Emergency Room. Once there, she was found to be hypotensive and has since been treated for septic shock with broad spectrum antibiotics. Additionally, admission lab values showed a hemoglobin of 6.8 and the nurses report showed that she had a melanotic stool and thus GI is asked for evaluation. Of note, the patient's family reports she had a colonoscopy performed in 05/2017 at [facility] and was told that she had polyps and hemorrhoids, but an EGD was not done there. PAST MEDICAL HISTORY: Dyslipidemia, coronary artery disease, type 2 diabetes, dementia, anxiety disorder. PAST SURGICAL HISTORY: Unknown at this time. FAMILY HISTORY: Noncontributory. ALLERGIES: Reports an allergy to hydromorphone, morphine, and promethazine. REVIEW OF SYSTEMS: Not possible given the patient's reduced mental status at this time. SOCIAL HISTORY: No documented history of alcoholism or illicit drug use. She is a resident of a nursing facility. CURRENT MEDICATIONS: Tylenol as needed, influenza vaccine, insulin as needed, magnesium oxide, vancomycin, Zosyn, Zofran as needed, PPI, pantoprazole drip. PHYSICAL EXAMINATION: VITAL SIGNS: Blood pressure is 109/56, pulse is 66 beats per minute, respiratory rate of 16, oxygenation 100%. GENERAL: The patient is lying flat in bed. She is alert and oriented x 0, no apparent distress. HEAD, EARS, EYES, NOSE, AND THROAT: Normocephalic appearing head. Pupils are equal and reactive to light. Extraocular muscles appear to be intact. She has temporal wasting. Dry mucous membranes. NECK: Supple. No JVD or thyromegaly or lymphadenopathy. CHEST: There are crackles at both bases. CARDIOVASCULAR: S1, S2 is present. Regular rate and rhythm. ABDOMEN: Soft, nontender to palpation. No obvious guarding, rebound, or distention. EXTREMITIES: Frail appearing. No pitting edema. Pulses are palpable. SKIN: No obvious jaundice or rashes. LABORATORY DATA: White blood cell count 4.8; hemoglobin 8.9, on admission was 6.8; platelet count is 172. Sodium 148, BUN 39, creatinine 0.6, total bilirubin 0.4, AST 35, ALT 29, albumin 2.6. IMAGING STUDIES: A CT abdomen and pelvis was performed and there was a preliminary read that shows severe distal fecal impaction, diverticulosis, status post cholecystectomy. There is a prominent CBD, mild haziness along the pancreaticoduodenal margin, questionable inflammatory process, and a Egan catheter. IMPRESSION: This is an 86-year-old female with past medical history of dementia, dysphagia with G-tube, anxiety disorder, coronary artery disease, who is admitted to the hospital with weakness, found to have septic shock, and anemia. 1. Anemia. 2. Septic shock. 3. Fecal impaction. 4. Melena. 5. Dementia. 6. Dysphagia with G-tube. DISCUSSION: The patient certainly appears to have presented hypotensive and in septic shock and has responded to fluid resuscitation and antibiotics at this point. She additionally had elevated glucose levels as well as a low hemoglobin. There is a report of black and tarry colored stool and thus it is feasible to consider an upper GI bleed in this instance. Lavage of the G-tube did not show any active bleeding at this time. The patient has responded well to 2 units of blood transfusion. Nevertheless, an EGD is indicated here. The patient already had a colonoscopy late last year. The son was concerned about a lower GI process especially given that the stool was black and not bright red. In terms of the CT findings, she does have a fecal impaction as well as some inflammatory process around the duodenum and pancreas. This may represent duodenitis, peptic ulcer disease, or even pancreatitis. RECOMMENDATIONS: 1. We will add on the lipase to evaluate for any pancreatitis. 2. Continue broad-spectrum antibiotics. 3. We will plan for EGD tomorrow to investigate upper GI bleed in the ICU. 4. Continue PPI drip at this time. 5. Cycle CBC and transfuse to keep hemoglobin above 7. 6. LFTs are normal. Thus, she is unlikely to have a biliary obstruction even though the CT findings noted prominent CBD. I will continue to follow. Thank you for allowing me to participate in this patient's care. Please call with any further questions. JOB# [id number]
[2017-10-15] MEDS: Pantoprazole 80 MG in Sodium Chloride 0.9% 100 ML IV SCH (04:12)
[2017-10-15] MEDS: INSULIN ASPART SLIDING SCALE 100 UNITS/ML UNIT SUBQ SCH ×4 (07:28→22:49)
[2017-10-15 08:02] LABS: % BASOPHILS 0.5 % (0.0-2.0); % EOSINOPHILS 2.4 % (0.0-5.0); % MONOCYTES 3.6 % (2.0-10.0); % NEUTROPHILS 77.5 % (40.0-80.0); EOSINOPHILE ABSOLUTE 0.2 Th/cmm (0.1-0.4); HEMATOCRIT 30.1 % (41.0-60); HEMOGLOBIN 9.6 gm/dL (12-16); LYMPHOCYTE ABSOLUTE 1.1 Th/cmm (1.5-3.0); MEAN CELL VOLUME 84.5 fl (81-100); MEAN CORPUSCULAR HEMOGLOBIN 26.9 pg (27.0-31.0); MEAN CORPUSCULAR HGB CONC 31.9 pg (28.0-36.0); MEAN PLATELET VOLUME 9.1 fl; MONOCYTE ABSOLUTE 0.3 Th/cmm (0.3-1.0); NEUTROPHILE ABSOLUTE 5.4 Th/cmm (1.8-8.0); PLATELET COUNT 183 Th/cmm (150-400); RED BLOOD COUNT 3.56 Mil/cmm (3.80-5.20); RED CELL DISTRIBUTION WIDTH 23.9 % (11.5-20.0)
[2017-10-15 08:08] LABS: INR 1.08 (0.5-1.4); PROTHROMBIN TIME (TEST) 11.2 SECONDS (9.5-11.5)
[2017-10-15 08:13] LABS: ANION GAP 9.9 (7.0-16.0); BUN - UREA NITROGEN 13 mg/dL (7-25); CALCIUM SERUM 6.7 mg/dL (8.6-10.3); CARBON DIOXIDE 21.4 mEq/L (21.0-31.0); CHLORIDE 115 mEq/L (98-107); CREATININE - SERUM 0.6 mg/dL (0.6-1.2); GLUCOSE 218 mg/dL (70-105); POTASSIUM SERUM 3.3 mEq/L (3.5-5.1); SODIUM SERUM 143 mEq/L (136-145)
--- NOTE | 2017-10-15 08:34 | GI Progress Note ---
Subjective - Review of Systems Service Date: 10/15/17 Subjective: Hgb up > 9 today, no further melena. Objective - Results Result Diagrams: 10/15/17 07:50 10/15/17 07:50 Recent Labs: Laboratory Last Values WBC 7.0 Th/cmm (4.8-10.8) 10/15/17 07:50 RBC 3.56 Mil/cmm (3.80-5.20) L 10/15/17 07:50 Hgb 9.6 gm/dL (12-16) L 10/15/17 07:50 Hct 30.1 % (41.0-60) L 10/15/17 07:50 MCV 84.5 fl (81-100) 10/15/17 07:50 MCH 26.9 pg (27.0-31.0) L 10/15/17 07:50 MCHC Differential 31.9 pg (28.0-36.0) 10/15/17 07:50 RDW 23.9 % (11.5-20.0) H 10/15/17 07:50 Plt Count 183 Th/cmm (150-400) 10/15/17 07:50 MPV 9.1 fl 10/15/17 07:50 Neutrophils % 77.5 % (40.0-80.0) 10/15/17 07:50 Lymphocytes % 16.0 % (20.0-50.0) L 10/15/17 07:50 Monocytes % 3.6 % (2.0-10.0) 10/15/17 07:50 Eosinophils % 2.4 % (0.0-5.0) 10/15/17 07:50 Basophils % 0.5 % (0.0-2.0) 10/15/17 07:50 PT 11.2 SECONDS (9.5-11.5) 10/15/17 07:50 INR 1.08 (0.5-1.4) 10/15/17 07:50 Specimen Source Arterial 10/14/17 08:15 Sample Site RB 10/14/17 08:15 pH 7.44 (7.35-7.45) 10/14/17 08:15 pCO2 36.0 mmHg (35.0-45.0) 10/14/17 08:15 pO2 110.0 mmHg (80.0-100.0) H 10/14/17 08:15 HCO3 25.4 mEq/L (20.0-26.0) 10/14/17 08:15 Base Excess 0.6 mEq/L (-3.0-3.0) 10/14/17 08:15 O2 Saturation 98.0 % (92.0-100.0) 10/14/17 08:15 Joao Test NA 10/14/17 08:15 Vent Rate NA 10/14/17 08:15 Inspired O2 21 10/14/17 08:15 Tidal Volume NA 10/14/17 08:15 PEEP NA 10/14/17 08:15 Pressure (ins/psv/peep) NA 10/14/17 08:15 Critical Value SH 10/14/17 08:15 Sodium 143 mEq/L (136-145) 10/15/17 07:50 Potassium 3.3 mEq/L (3.5-5.1) L 10/15/17 07:50 Chloride 115 mEq/L (98-107) H 10/15/17 07:50 Carbon Dioxide 21.4 mEq/L (21.0-31.0) 10/15/17 07:50 Anion Gap 9.9 (7.0-16.0) 10/15/17 07:50 BUN 13 mg/dL (7-25) 10/15/17 07:50 Creatinine 0.6 mg/dL (0.6-1.2) 10/15/17 07:50 Est GFR ( Amer) TNP 10/15/17 07:50 Est GFR (Non-Af Amer) TNP 10/15/17 07:50 BUN/Creatinine Ratio 21.7 10/15/17 07:50 Glucose 218 mg/dL (70-105) H 10/15/17 07:50 POC Glucose 229 MG/DL (70 - 105) H 10/14/17 20:57 Hemoglobin A1c % 5.4 % (4.0-6.0) 10/13/17 08:30 Whole Bld Lactic Acid 1.91 mmol/L (0.60-1.99) 10/14/17 08:05 Calcium 6.7 mg/dL (8.6-10.3) L 10/15/17 07:50 Magnesium 2.1 mg/dL (1.9-2.7) 10/14/17 08:05 Iron 17 ug/dL (27-139) L 10/13/17 08:30 TIBC 343 ug/dL (250-450) 10/13/17 08:30 Iron Saturation 5 % (15-55) L 10/13/17 08:30 Unsaturated IBC 326 ug/dL (118-369) 10/13/17 08:30 Total Bilirubin 0.4 mg/dL (0.3-1.0) 10/14/17 08:05 Direct Bilirubin 0.15 mg/dL (0.0-0.2) 10/14/17 08:05 AST 35 U/L (13-39) 10/14/17 08:05 ALT 29 U/L (7-52) 10/14/17 08:05 Alkaline Phosphatase 56 U/L (34-104) 10/14/17 08:05 Ammonia 57 umol/L (16-53) H 10/14/17 08:05 B-Natriuretic Peptide 118.0 pg/mL (5.0-100.0) H 10/13/17 08:30 Total Protein 4.9 gm/dL (6.0-8.3) L 10/14/17 08:05 Albumin 2.6 gm/dL (3.7-5.3) L 10/14/17 08:05 Globulin 2.3 gm/dL 10/14/17 08:05 Albumin/Globulin Ratio 1.1 (1.0-1.8) 10/14/17 08:05 Triglycerides 245 mg/dL (<150) H 10/13/17 08:30 Cholesterol 96 mg/dL (<200) 10/13/17 08:30 LDL Cholesterol Direct 40 mg/dL (75-193) L 10/13/17 08:30 HDL Cholesterol 27 mg/dL (23-92) 10/13/17 08:30 Lipase 42 U/L (11-82) 10/14/17 08:05 TSH 8.23 uIU/ml (0.34-5.60) H 10/13/17 08:30 Urine Source CATH 10/13/17 09:45 Urine Color YELLOW 10/13/17 09:45 Urine Clarity CLEAR (CLEAR) 10/13/17 09:45 Urine pH 7.0 (4.6 - 8.0) 10/13/17 09:45 Ur Specific [place] 1.010 (1.005-1.030) 10/13/17 09:45 Urine Protein NEGATIVE mg/dL (NEGATIVE) 10/13/17 09:45 Urine Glucose (UA) NEGATIVE mg/dL (NEGATIVE) 10/13/17 09:45 Urine Ketones NEGATIVE mg/dL (NEGATIVE) 10/13/17 09:45 Urine Blood NEGATIVE (NEGATIVE) 10/13/17 09:45 Urine Nitrate NEGATIVE (NEGATIVE) 10/13/17 09:45 Urine Bilirubin NEGATIVE (NEGATIVE) 10/13/17 09:45 Urine Urobilinogen 0.2 E.U./dL (0.2 - 1.0) 10/13/17 09:45 Ur Leukocyte Esterase NEGATIVE (NEGATIVE) 10/13/17 09:45 Urine RBC NONE SEEN /hpf (0-5) 10/13/17 09:45 Urine WBC NONE SEEN /hpf (0-5) 10/13/17 09:45 Ur Epithelial Cells NONE SEEN /lpf (FEW) 10/13/17 09:45 Urine Bacteria NONE SEEN /hpf (NONE SEEN) 10/13/17 09:45 Stool Occult Blood POSITIVE (NEGATIVE) H 10/14/17 07:00 Vancomycin Trough 11.0 ug/mL (10-20) 10/15/17 07:50 Blood Type O POSITIVE 10/13/17 10:36 Antibody Screen NEGATIVE 10/13/17 10:36 Crossmatch See Detail 10/13/17 10:36 - Physical Exam Vitals and I&O: Vital Signs Temp 97 F 10/15/17 04:00 Pulse 68 10/15/17 07:14 Resp 9 10/15/17 07:14 BP 98/52 10/15/17 06:00 Pulse Ox 100 10/15/17 07:14 Intake & Output 10/14/17 10/15/17 10/15/17 18:59 06:59 18:59 Intake Total 9244.391 3749.083 50 Output Total 650 400 Balance 286.762 6882.083 50 Weight (lbs) 61.235 kg 60.509 kg Intake: Intake, IV Amount 4289.346 1531.083 50 D5-0.45NS 1,000 ml @ 125 1000 1781.25 mls/hr IV .Q8H [facility] Rx#: [id number] Pantoprazole 80 mg In 31.333 119.833 Sodium Chloride 0.9% 100 ml @ 10 mls/hr IV Q10H [facility] Rx#:[id number] Piperacillin Sodium/ 100 50 50 Tazobact 3.375 gm In Sodium Chloride 0.9% 50 ml @ 100 mls/hr IV Q6HR [facility] Rx#:[id number] Vancomycin HCl 1 gm In 250 Sodium Chloride 0.9% 250 ml @ 165 mls/hr IV Q24H [facility] Rx#:[id number] Output: Urine 650 400 Other: # Bowel Movements 0 Active Medications: Current Medications Acetaminophen (Tylenol) 650 mg PO Q6H PRN PRN Reason: HEADACHE/TEMP ABOVE 100F Stop: 12/12/17 09:19 Magnesium Sulfate (Magnesium Sulfate Premix) 2 gm in 50 mls @ 25 mls/hr IV DAILY PRN PRN Reason: Magnesium level less than 1.6 Stop: 12/12/17 09:19 Vancomycin HCl 1 gm/ Sodium (Chloride) 250 mls @ 165 mls/hr IV Q24H [facility] Stop: 12/13/17 08:59 Last Infusion: 10/14/17 10:45 Dose: Infused Piperacillin Sod/Tazobactam (Sod 3.375 gm/ Sodium Chloride) 50 mls @ 100 mls/ hr IV Q6HR [facility] Stop: 12/12/17 11:59 Last Infusion: 10/15/17 07:07 Dose: Infused Pantoprazole Sodium 80 mg/ (Sodium Chloride) 100 mls @ 10 mls/hr IV Q10H [facility] Stop: 12/12/17 14:59 Last Infusion: 10/15/17 06:11 Dose: 10 mls/hr Dextrose/Sodium Chloride (D5-0.45ns) 1,000 mls @ 125 mls/hr IV .Q8H [facility] Stop: 12/12/17 20:31 Last Infusion: 10/15/17 06:11 Dose: 125 mls/hr Insulin Aspart (Novolog Insulin Sliding Scale) 0 units SUBQ ACHS CADE PRN Reason: Protocol Stop: 12/12/17 11:29 Last Admin: 10/15/17 07:28 Dose: 6 units Magnesium Oxide (Mag-Oxide) 400 mg PO BID PRN PRN Reason: Mg less than 1.9 Stop: 12/12/17 09:19 Miscellaneous (Vancomycin Iv Per Pharmacy) 1 ea [facility] PRN PRN PRN Reason: PROTOCOL Stop: 12/12/17 09:17 Miscellaneous (Zosyn Iv Per Pharmacy) 1 ea [facility] PRN PRN PRN Reason: PROTOCOL Stop: 12/12/17 09:17 Miscellaneous (Vte Chemical Prophylaxis Screen/ Admission) 1 ea [facility] PRN PRN PRN Reason: PROTOCOL Stop: 12/12/17 13:59 Ondansetron HCl (Zofran) 4 mg IVP Q6H PRN PRN Reason: Nausea / Vomiting Stop: 12/12/17 09:19 General: No acute distress HEENT: Atraumatic, PERRLA, EOMI Neck: Supple, no JVD Cardiovascular: Regular rate Lungs: Other (Decreased BS bl) Abdomen: Bowel sounds, Soft, no Tender, no Hepatomegaly Extremities: no Clubbing Neurological: Sensation intact Skin: no Rash, no Breakdown Psych/Mental Status: Other (No pyshosis) - Procedures Procedures: Procedures Procedure Code Date BLOOD TRANSFUSION SERVICE 17667 10/13/17 COLONOSCOPY AND BIOPSY 32371 03/14/12 COLONOSCOPY W/LESION REMOVAL 52673 03/14/12 EGD BIOPSY SINGLE/MULTIPLE 15436 03/14/12 ENDO RECTUM POLYPECTOMY 48.36 03/14/12 ENDOSC POLYPECTOMY OF LG INTEST 45.42 03/14/12 ESOPHAGOGASTRODUODENOSCOPY [EGD] W/CLOSED BIOPSY 45.16 03/14/12 LESION REMOVAL COLONOSCOPY 84582 03/14/12 PACKED CELL TRANSFUSION 99.04 03/14/12 TRANSFUSE NONAUT RED BLOOD CELLS IN PERIPH VEIN, [facility] [id number] 10/13/17 Assessment/Plan - Assessment Assessment: # Anemia # Fecal impaction # Melena # Septic shock # Uncontrolled diabetes Initial hgb was 6.8, and she has responded well to blood products without further melena. EGD was scheduled this morning, but OR not available. Thus, will schedule for tomorrow AM. Colonoscopy already performed at [facility] in 05/2017, found polyps as . Plan: - EGD tomorrow morning 10/19 OR availability. Pt stable - cont PPI - can give feeds today, NPO midnight - cycle CBCs, transfuse hgb > 7 Thank you for allowing me to participate in this patient's care, please call with any questions
--- NOTE | 2017-10-15 09:22 | General Progress Note ---
Subjective - Review of Systems Service Date: 10/15/17 Subjective: Pt seen and eval. She's awake today and talking. Her youngest daughter is at the bedside. No n,v,d or cp. BP improved. Did not require any vasopressors. No falls or sz. On iv fluids, now on D5-0.5ns. Stool OB positive. All anticoagulation is being held. GI scheduled EGD for . No sz. Afebrile. Status post 1 unit prbc, which was ordered in the ER. Has a GT, but no feedings right now. Objective - Results Result Diagrams: 10/15/17 07:50 10/15/17 07:50 Recent Labs: Laboratory Last Values WBC 7.0 Th/cmm (4.8-10.8) 10/15/17 07:50 RBC 3.56 Mil/cmm (3.80-5.20) L 10/15/17 07:50 Hgb 9.6 gm/dL (12-16) L 10/15/17 07:50 Hct 30.1 % (41.0-60) L 10/15/17 07:50 MCV 84.5 fl (81-100) 10/15/17 07:50 MCH 26.9 pg (27.0-31.0) L 10/15/17 07:50 MCHC Differential 31.9 pg (28.0-36.0) 10/15/17 07:50 RDW 23.9 % (11.5-20.0) H 10/15/17 07:50 Plt Count 183 Th/cmm (150-400) 10/15/17 07:50 MPV 9.1 fl 10/15/17 07:50 Neutrophils % 77.5 % (40.0-80.0) 10/15/17 07:50 Lymphocytes % 16.0 % (20.0-50.0) L 10/15/17 07:50 Monocytes % 3.6 % (2.0-10.0) 10/15/17 07:50 Eosinophils % 2.4 % (0.0-5.0) 10/15/17 07:50 Basophils % 0.5 % (0.0-2.0) 10/15/17 07:50 PT 11.2 SECONDS (9.5-11.5) 10/15/17 07:50 INR 1.08 (0.5-1.4) 10/15/17 07:50 Specimen Source Arterial 10/14/17 08:15 Sample Site RB 10/14/17 08:15 pH 7.44 (7.35-7.45) 10/14/17 08:15 pCO2 36.0 mmHg (35.0-45.0) 10/14/17 08:15 pO2 110.0 mmHg (80.0-100.0) H 10/14/17 08:15 HCO3 25.4 mEq/L (20.0-26.0) 10/14/17 08:15 Base Excess 0.6 mEq/L (-3.0-3.0) 10/14/17 08:15 O2 Saturation 98.0 % (92.0-100.0) 10/14/17 08:15 Joao Test NA 10/14/17 08:15 Vent Rate NA 10/14/17 08:15 Inspired O2 21 10/14/17 08:15 Tidal Volume NA 10/14/17 08:15 PEEP NA 10/14/17 08:15 Pressure (ins/psv/peep) NA 10/14/17 08:15 Critical Value SH 10/14/17 08:15 Sodium 143 mEq/L (136-145) 10/15/17 07:50 Potassium 3.3 mEq/L (3.5-5.1) L 10/15/17 07:50 Chloride 115 mEq/L (98-107) H 10/15/17 07:50 Carbon Dioxide 21.4 mEq/L (21.0-31.0) 10/15/17 07:50 Anion Gap 9.9 (7.0-16.0) 10/15/17 07:50 BUN 13 mg/dL (7-25) 10/15/17 07:50 Creatinine 0.6 mg/dL (0.6-1.2) 10/15/17 07:50 Est GFR ( Amer) TNP 10/15/17 07:50 Est GFR (Non-Af Amer) TNP 10/15/17 07:50 BUN/Creatinine Ratio 21.7 10/15/17 07:50 Glucose 218 mg/dL (70-105) H 10/15/17 07:50 POC Glucose 229 MG/DL (70 - 105) H 10/14/17 20:57 Hemoglobin A1c % 5.4 % (4.0-6.0) 10/13/17 08:30 Whole Bld Lactic Acid 1.91 mmol/L (0.60-1.99) 10/14/17 08:05 Calcium 6.7 mg/dL (8.6-10.3) L 10/15/17 07:50 Magnesium 2.1 mg/dL (1.9-2.7) 10/14/17 08:05 Iron 17 ug/dL (27-139) L 10/13/17 08:30 TIBC 343 ug/dL (250-450) 10/13/17 08:30 Iron Saturation 5 % (15-55) L 10/13/17 08:30 Unsaturated IBC 326 ug/dL (118-369) 10/13/17 08:30 Total Bilirubin 0.4 mg/dL (0.3-1.0) 10/14/17 08:05 Direct Bilirubin 0.15 mg/dL (0.0-0.2) 10/14/17 08:05 AST 35 U/L (13-39) 10/14/17 08:05 ALT 29 U/L (7-52) 10/14/17 08:05 Alkaline Phosphatase 56 U/L (34-104) 10/14/17 08:05 Ammonia 57 umol/L (16-53) H 10/14/17 08:05 B-Natriuretic Peptide 118.0 pg/mL (5.0-100.0) H 10/13/17 08:30 Total Protein 4.9 gm/dL (6.0-8.3) L 10/14/17 08:05 Albumin 2.6 gm/dL (3.7-5.3) L 10/14/17 08:05 Globulin 2.3 gm/dL 10/14/17 08:05 Albumin/Globulin Ratio 1.1 (1.0-1.8) 10/14/17 08:05 Triglycerides 245 mg/dL (<150) H 10/13/17 08:30 Cholesterol 96 mg/dL (<200) 10/13/17 08:30 LDL Cholesterol Direct 40 mg/dL (75-193) L 10/13/17 08:30 HDL Cholesterol 27 mg/dL (23-92) 10/13/17 08:30 Lipase 42 U/L (11-82) 10/14/17 08:05 TSH 8.23 uIU/ml (0.34-5.60) H 10/13/17 08:30 Urine Source CATH 10/13/17 09:45 Urine Color YELLOW 10/13/17 09:45 Urine Clarity CLEAR (CLEAR) 10/13/17 09:45 Urine pH 7.0 (4.6 - 8.0) 10/13/17 09:45 Ur Specific [place] 1.010 (1.005-1.030) 10/13/17 09:45 Urine Protein NEGATIVE mg/dL (NEGATIVE) 10/13/17 09:45 Urine Glucose (UA) NEGATIVE mg/dL (NEGATIVE) 10/13/17 09:45 Urine Ketones NEGATIVE mg/dL (NEGATIVE) 10/13/17 09:45 Urine Blood NEGATIVE (NEGATIVE) 10/13/17 09:45 Urine Nitrate NEGATIVE (NEGATIVE) 10/13/17 09:45 Urine Bilirubin NEGATIVE (NEGATIVE) 10/13/17 09:45 Urine Urobilinogen 0.2 E.U./dL (0.2 - 1.0) 10/13/17 09:45 Ur Leukocyte Esterase NEGATIVE (NEGATIVE) 10/13/17 09:45 Urine RBC NONE SEEN /hpf (0-5) 10/13/17 09:45 Urine WBC NONE SEEN /hpf (0-5) 10/13/17 09:45 Ur Epithelial Cells NONE SEEN /lpf (FEW) 10/13/17 09:45 Urine Bacteria NONE SEEN /hpf (NONE SEEN) 10/13/17 09:45 Stool Occult Blood POSITIVE (NEGATIVE) H 10/14/17 07:00 Vancomycin Trough 11.0 ug/mL (10-20) 10/15/17 07:50 Blood Type O POSITIVE 10/13/17 10:36 Antibody Screen NEGATIVE 10/13/17 10:36 Crossmatch See Detail 10/13/17 10:36 - Physical Exam Vitals and I&O: Vital Signs Temp 97 F 10/15/17 04:00 Pulse 68 10/15/17 07:14 Resp 9 10/15/17 07:14 BP 98/52 10/15/17 06:00 Pulse Ox 100 10/15/17 07:14 Intake & Output 01/10/15/17 10/15/17 18:59 06:59 18:59 Intake Total 7428.225 2191.083 50 Output Total 650 400 Balance 967.956 3229.083 50 Weight (lbs) 61.235 kg 60.509 kg Intake: Intake, IV Amount 8438.934 3236.083 50 D5-0.45NS 1,000 ml @ 125 1000 1781.25 mls/hr IV .Q8H [facility] Rx#: [id number] Pantoprazole 80 mg In 31.333 119.833 Sodium Chloride 0.9% 100 ml @ 10 mls/hr IV Q10H [facility] Rx#:[id number] Piperacillin Sodium/ 100 50 50 Tazobact 3.375 gm In Sodium Chloride 0.9% 50 ml @ 100 mls/hr IV Q6HR [facility] Rx#:[id number] Vancomycin HCl 1 gm In 250 Sodium Chloride 0.9% 250 ml @ 165 mls/hr IV Q24H [facility] Rx#:[id number] Output: Urine 650 400 Other: # Bowel Movements 0 Active Medications: Current Medications Acetaminophen (Tylenol) 650 mg PO Q6H PRN PRN Reason: HEADACHE/TEMP ABOVE 100F Stop: 12/12/17 09:19 Magnesium Sulfate (Magnesium Sulfate Premix) 2 gm in 50 mls @ 25 mls/hr IV DAILY PRN PRN Reason: Magnesium level less than 1.6 Stop: 12/12/17 09:19 Vancomycin HCl 1 gm/ Sodium (Chloride) 250 mls @ 165 mls/hr IV Q24H [facility] Stop: 12/13/17 08:59 Last Admin: 10/15/17 08:44 Dose: 165 mls/hr Piperacillin Sod/Tazobactam (Sod 3.375 gm/ Sodium Chloride) 50 mls @ 100 mls/ hr IV Q6HR [facility] Stop: 12/12/17 11:59 Last Infusion: 10/15/17 07:07 Dose: Infused Pantoprazole Sodium 80 mg/ (Sodium Chloride) 100 mls @ 10 mls/hr IV Q10H [facility] Stop: 12/12/17 14:59 Last Infusion: 10/15/17 06:11 Dose: 10 mls/hr Dextrose/Sodium Chloride (D5-0.45ns) 1,000 mls @ 125 mls/hr IV .Q8H [facility] Stop: 12/12/17 20:31 Last Infusion: 10/15/17 06:11 Dose: 125 mls/hr Insulin Aspart (Novolog Insulin Sliding Scale) 0 units SUBQ ACHS CADE PRN Reason: Protocol Stop: 12/12/17 11:29 Last Admin: 10/15/17 07:28 Dose: 6 units Magnesium Oxide (Mag-Oxide) 400 mg PO BID PRN PRN Reason: Mg less than 1.9 Stop: 12/12/17 09:19 Miscellaneous (Vancomycin Iv Per Pharmacy) 1 ea PRN PRN PRN Reason: PROTOCOL Stop: 12/12/17 09:17 Miscellaneous (Zosyn Iv Per Pharmacy) 1 [facility] PRN PRN PRN Reason: PROTOCOL Stop: 12/12/17 09:17 Miscellaneous (Vte Chemical Prophylaxis Screen/ Admission) 1 [facility] PRN PRN PRN Reason: PROTOCOL Stop: 12/12/17 13:59 Ondansetron HCl (Zofran) 4 mg IVP Q6H PRN PRN Reason: Nausea / Vomiting Stop: 12/12/17 09:19 General: No acute distress HEENT: Atraumatic, PERRLA, EOMI Neck: Supple, no JVD Cardiovascular: Regular rate Lungs: Other (Decreased BS bl) Abdomen: Bowel sounds, Soft, no Tender, no Hepatomegaly Extremities: no Clubbing Neurological: Sensation intact Skin: no Rash, no Breakdown Psych/Mental Status: Other (No pyshosis) - Procedures Procedures: Procedures Procedure Code Date BLOOD TRANSFUSION SERVICE 46981 10/13/17 COLONOSCOPY AND BIOPSY 38960 03/14/12 COLONOSCOPY W/LESION REMOVAL 07742 03/14/12 EGD BIOPSY SINGLE/MULTIPLE 64819 03/14/12 ENDO RECTUM POLYPECTOMY 48.36 03/14/12 ENDOSC POLYPECTOMY OF LG INTEST 45.42 03/14/12 ESOPHAGOGASTRODUODENOSCOPY [EGD] W/CLOSED BIOPSY 45.16 03/14/12 LESION REMOVAL COLONOSCOPY 29305 03/14/12 PACKED CELL TRANSFUSION 99.04 03/14/12 TRANSFUSE NONAUT RED BLOOD CELLS IN PERIPH VEIN, [facility] [id number] 10/13/17 Assessment/Plan - Assessment Assessment: Septic shock Hypovolemic Hypernatremia DM-OOC Mild Manlut Severe anemia with possible GI bleed ME CAD Dyslipid Hypokalemia - Plan Plan: PT seen by ID, GI, and Pulm. Lloyd hinkle today on 10/15/17. On aggressive hydration. She's not on any vasopressors right now. GI scheduling EGD as stool OB is positive. Pt had a colonoscopy in may [address] [facility]. On Vanceo and Zosyn. On FSBS and riss. On iv d5-0.5ns and protonix drip. FU on chem 7 and cbc. FU on cultures. Met with youngest daughter at bedside and answered all her questions. Discussed care with RN. Will transfer pt out of the ICU today-top tele. Fu on EGD which is scheduled for 10/16/17. Nutritional Asmnt/Malnutr-PDOC - Dietary Evaluation Malnutrition Findings (Please click <Entered> for more info): Nutritional Asmnt/Malnutrition Start: 10/13/17 13: 06 Text: Status: Complete Freq: Document 10/13/17 13:06 IMANI (Rec: 10/13/17 13:17 [email or web address] [email or web address]) Nutritional Asmnt/Malnutrition Patient General Information Nutritional Screening High Risk Consult Diagnosis Septic shock Pertinent Medical Hx/Surgical Hx diabetes, dyslipidemia, CAD, dementia Subjective Information Consult received for wound present on admissino and marcus scale <12. Patient admitted from [facility] with hyperglycemia (489 BG, then 533). Patient lying in bed at time of visit. Current Diet Order/ Nutrition Support NPO Patient / S.O Not Indicated Pertinent Medications NOvolog, Mag-oxide, abx, zofran Pertinent Labs 10/13: Na 151, BUN 91, glucose 139-255, AST 43, albumin 3.3, TAG 245 Nutritional Hx/Data Height 1.65 m Height (Calculated Centimeters) 165.1 Current Weight (lbs) 61.235 kg Weight (Calculated Kilograms) 61.2 Weight (Calculated Grams) 43079.0 [place] Body Weight 125 % [place] Body Weight 108 Body Mass Index (BMI) 22.4 Recent Weight Change No Weight Status Approriate GI Symptoms GI Symptoms None Last BM None noted since admission Difficult in: None Food Allergies No Cultural/Ethnic/Orthodoxy Belief none indicated Skin Integrity/Comment: Marcus Estimated Nutritional Goals BEE in Kcals: Using Current wt Calories/Kcals/Kg 27-32 kcal/kg- using 61.3 kg Current body weight- sepsis Kcals Calculated ~3706-3954 kcal/day Protein: Using Current wt Protein g/k.2-1.5 gm/kg - Sepsis Protein Calculated ~75-92 gm/day Fluid: ml ~5933-5083 ml/day (1 ml/kcal) Nutritional Problem 2. Problem Problem Altered nutrition related lab values related to Etiology uncontrolled hyperglycemia aeb Signs/Symptoms: glucose 139-255, 1. Problem Problem Inadequate energy intake related to Etiology withholding of nutrition at this time with NPO diet order aeb Signs/Symptoms: meeting <25% of estimated nutrient needs. Intervention/Recommendation Comments 1. Due to hx dysphagia and Gtube, when medically appropriate, start Diabetisource AC at goal of 55 ml/hr to provide 1320 ml volume, 1584 kcal, 79 gm protein. 2. Adjust insulin regimen per MD for optimal glycemic control. Expected Outcomes/Goals Expected Outcomes/Goals meets >75% of estimated nutrient needs, improved skin integrity, nutrition related labs normalize, F/U HR 2-3 days
[2017-10-15] MEDS ORDERED: KCL 20mEq/100mL Premix 20 MEQ/100 ML PIGGYBACK IV SCH (09:30)
[2017-10-15] MEDS ORDERED: Potassium Chloride 40 MEQ, Lidocaine 1% 20mL Vial 25 MG in Sodium Chloride 0.9% 250 ML IV ONE (10:00)
[2017-10-15] MEDS: D5-0.45NS 1,000 ML IV SCH ×3 (10:00→21:26)
--- NOTE | 2017-10-15 12:34 | Infectious Disease Prog Note ---
Infectious Disease Subjective - Review of Systems Service Date: 10/15/17 Subjective: Patient's blood pressure dropped. Levophed was started. No fever. Infectious Disease Objective - Results Result Diagrams: 10/15/17 07:50 10/15/17 07:50 Recent Labs: Laboratory Last Values WBC 7.0 Th/cmm (4.8-10.8) 10/15/17 07:50 RBC 3.56 Mil/cmm (3.80-5.20) L 10/15/17 07:50 Hgb 9.6 gm/dL (12-16) L 10/15/17 07:50 Hct 30.1 % (41.0-60) L 10/15/17 07:50 MCV 84.5 fl (81-100) 10/15/17 07:50 MCH 26.9 pg (27.0-31.0) L 10/15/17 07:50 MCHC Differential 31.9 pg (28.0-36.0) 10/15/17 07:50 RDW 23.9 % (11.5-20.0) H 10/15/17 07:50 Plt Count 183 Th/cmm (150-400) 10/15/17 07:50 MPV 9.1 fl 10/15/17 07:50 Neutrophils % 77.5 % (40.0-80.0) 10/15/17 07:50 Lymphocytes % 16.0 % (20.0-50.0) L 10/15/17 07:50 Monocytes % 3.6 % (2.0-10.0) 10/15/17 07:50 Eosinophils % 2.4 % (0.0-5.0) 10/15/17 07:50 Basophils % 0.5 % (0.0-2.0) 10/15/17 07:50 PT 11.2 SECONDS (9.5-11.5) 10/15/17 07:50 INR 1.08 (0.5-1.4) 10/15/17 07:50 Specimen Source Arterial 10/14/17 08:15 Sample Site RB 10/14/17 08:15 pH 7.44 (7.35-7.45) 10/14/17 08:15 pCO2 36.0 mmHg (35.0-45.0) 10/14/17 08:15 pO2 110.0 mmHg (80.0-100.0) H 10/14/17 08:15 HCO3 25.4 mEq/L (20.0-26.0) 10/14/17 08:15 Base Excess 0.6 mEq/L (-3.0-3.0) 10/14/17 08:15 O2 Saturation 98.0 % (92.0-100.0) 10/14/17 08:15 Joao Test NA 10/14/17 08:15 Vent Rate NA 10/14/17 08:15 Inspired O2 21 10/14/17 08:15 Tidal Volume NA 10/14/17 08:15 PEEP NA 10/14/17 08:15 Pressure (ins/psv/peep) NA 10/14/17 08:15 Critical Value SH 10/14/17 08:15 Sodium 143 mEq/L (136-145) 10/15/17 07:50 Potassium 3.3 mEq/L (3.5-5.1) L 10/15/17 07:50 Chloride 115 mEq/L (98-107) H 10/15/17 07:50 Carbon Dioxide 21.4 mEq/L (21.0-31.0) 10/15/17 07:50 Anion Gap 9.9 (7.0-16.0) 10/15/17 07:50 BUN 13 mg/dL (7-25) 10/15/17 07:50 Creatinine 0.6 mg/dL (0.6-1.2) 10/15/17 07:50 Est GFR ( Amer) TNP 10/15/17 07:50 Est GFR (Non-Af Amer) TNP 10/15/17 07:50 BUN/Creatinine Ratio 21.7 10/15/17 07:50 Glucose 218 mg/dL (70-105) H 10/15/17 07:50 POC Glucose 147 MG/DL (70 - 105) H 10/15/17 11:20 Hemoglobin A1c % 5.4 % (4.0-6.0) 10/13/17 08:30 Whole Bld Lactic Acid 1.91 mmol/L (0.60-1.99) 10/14/17 08:05 Calcium 6.7 mg/dL (8.6-10.3) L 10/15/17 07:50 Magnesium 2.1 mg/dL (1.9-2.7) 10/14/17 08:05 Iron 17 ug/dL (27-139) L 10/13/17 08:30 TIBC 343 ug/dL (250-450) 10/13/17 08:30 Iron Saturation 5 % (15-55) L 10/13/17 08:30 Unsaturated IBC 326 ug/dL (118-369) 10/13/17 08:30 Total Bilirubin 0.4 mg/dL (0.3-1.0) 10/14/17 08:05 Direct Bilirubin 0.15 mg/dL (0.0-0.2) 10/14/17 08:05 AST 35 U/L (13-39) 10/14/17 08:05 ALT 29 U/L (7-52) 10/14/17 08:05 Alkaline Phosphatase 56 U/L (34-104) 10/14/17 08:05 Ammonia 57 umol/L (16-53) H 10/14/17 08:05 B-Natriuretic Peptide 118.0 pg/mL (5.0-100.0) H 10/13/17 08:30 Total Protein 4.9 gm/dL (6.0-8.3) L 10/14/17 08:05 Albumin 2.6 gm/dL (3.7-5.3) L 10/14/17 08:05 Globulin 2.3 gm/dL 10/14/17 08:05 Albumin/Globulin Ratio 1.1 (1.0-1.8) 10/14/17 08:05 Triglycerides 245 mg/dL (<150) H 10/13/17 08:30 Cholesterol 96 mg/dL (<200) 10/13/17 08:30 LDL Cholesterol Direct 40 mg/dL (75-193) L 10/13/17 08:30 HDL Cholesterol 27 mg/dL (23-92) 10/13/17 08:30 Lipase 42 U/L (11-82) 10/14/17 08:05 TSH 8.23 uIU/ml (0.34-5.60) H 10/13/17 08:30 Urine Source CATH 10/13/17 09:45 Urine Color YELLOW 10/13/17 09:45 Urine Clarity CLEAR (CLEAR) 10/13/17 09:45 Urine pH 7.0 (4.6 - 8.0) 10/13/17 09:45 Ur Specific [place] 1.010 (1.005-1.030) 10/13/17 09:45 Urine Protein NEGATIVE mg/dL (NEGATIVE) 10/13/17 09:45 Urine Glucose (UA) NEGATIVE mg/dL (NEGATIVE) 10/13/17 09:45 Urine Ketones NEGATIVE mg/dL (NEGATIVE) 10/13/17 09:45 Urine Blood NEGATIVE (NEGATIVE) 10/13/17 09:45 Urine Nitrate NEGATIVE (NEGATIVE) 10/13/17 09:45 Urine Bilirubin NEGATIVE (NEGATIVE) 10/13/17 09:45 Urine Urobilinogen 0.2 E.U./dL (0.2 - 1.0) 10/13/17 09:45 Ur Leukocyte Esterase NEGATIVE (NEGATIVE) 10/13/17 09:45 Urine RBC NONE SEEN /hpf (0-5) 10/13/17 09:45 Urine WBC NONE SEEN /hpf (0-5) 10/13/17 09:45 Ur Epithelial Cells NONE SEEN /lpf (FEW) 10/13/17 09:45 Urine Bacteria NONE SEEN /hpf (NONE SEEN) 10/13/17 09:45 Stool Occult Blood POSITIVE (NEGATIVE) H 10/14/17 07:00 Vancomycin Trough 11.0 ug/mL (10-20) 10/15/17 07:50 Blood Type O POSITIVE 10/13/17 10:36 Antibody Screen NEGATIVE 10/13/17 10:36 Crossmatch See Detail 10/13/17 10:36 - Physical Exam Vitals and I&O: Vital Signs Temp 97.4 F 10/15/17 12:00 Pulse 77 10/15/17 12:15 Resp 12 10/15/17 12:00 BP 97/48 10/15/17 12:15 Pulse Ox 100 10/15/17 12:00 Intake & Output 10/14/17 10/15/17 10/15/17 18:59 06:59 18:59 Intake Total 8187.859 7467.083 568.75 Output Total 650 400 Balance 148.821 9016.083 568.75 Weight (lbs) 61.235 kg 60.509 kg Intake: Intake, IV Amount 8095.312 9761.083 568.75 D5-0.45NS 1,000 ml @ 125 1000 1781.25 218.75 mls/hr IV .Q8H [facility] Rx#: [id number] Pantoprazole 80 mg In 31.333 119.833 Sodium Chloride 0.9% 100 ml @ 10 mls/hr IV Q10H [facility] Rx#:[id number] Piperacillin Sodium/ 100 50 100 Tazobact 3.375 gm In Sodium Chloride 0.9% 50 ml @ 100 mls/hr IV Q6HR [facility] Rx#:[id number] Vancomycin HCl 1 gm In 250 250 Sodium Chloride 0.9% 250 ml @ 165 mls/hr IV Q24H [facility] Rx#:[id number] Output: Urine 650 400 Other: # Bowel Movements 0 Active Medications: Current Medications Acetaminophen (Tylenol) 650 mg PO Q6H PRN PRN Reason: HEADACHE/TEMP ABOVE 100F Stop: 12/12/17 09:19 Magnesium Sulfate (Magnesium Sulfate Premix) 2 gm in 50 mls @ 25 mls/hr IV DAILY PRN PRN Reason: Magnesium level less than 1.6 Stop: 12/12/17 09:19 Vancomycin HCl 1 gm/ Sodium (Chloride) 250 mls @ 165 mls/hr IV Q24H [facility] Stop: 12/13/17 08:59 Last Infusion: 10/15/17 10:15 Dose: Infused Piperacillin Sod/Tazobactam (Sod 3.375 gm/ Sodium Chloride) 50 mls @ 100 mls/ hr IV Q6HR [facility] Stop: 12/12/17 11:59 Last Infusion: 10/15/17 11:35 Dose: Infused Dextrose/Sodium Chloride (D5-0.45ns) 1,000 mls @ 125 mls/hr IV .Q8H [facility] Stop: 12/12/17 20:31 Last Admin: 10/15/17 10:00 Dose: 125 mls/hr Potassium Chloride 40 meq/Lidocaine HCl 25 mg/ Sodium Chloride 272.5 mls @ 67.623 mls/hr IV ONCE ONE Stop: 10/15/17 14:01 Last Admin: 10/15/17 10:20 Dose: 67.623 mls/hr Norepinephrine Bitartrate 4 mg (/ Dextrose) 254 mls @ 15.24 mls/hr IV TITR PRN ; Protocol; 4 MCG/MIN PRN Reason: BP MAINTENANCE (PER PROTOCOL) Stop: 12/14/17 10:17 Last Admin: 10/15/17 10:56 Dose: 4 mcg/min, 15.24 mls/hr Insulin Aspart (Novolog Insulin Sliding Scale) 0 units SUBQ ACHS CADE PRN Reason: Protocol Stop: 12/12/17 11:29 Last Admin: 10/15/17 11:21 Dose: Not Given Magnesium Oxide (Mag-Oxide) 400 mg PO BID PRN PRN Reason: Mg less than 1.9 Stop: 12/12/17 09:19 Miscellaneous (Vancomycin Iv Per Pharmacy) 1 [facility] PRN PRN PRN Reason: PROTOCOL Stop: 12/12/17 09:17 Miscellaneous (Zosyn Iv Per Pharmacy) 1 [facility] PRN PRN PRN Reason: PROTOCOL Stop: 12/12/17 09:17 Miscellaneous (Vte Chemical Prophylaxis Screen/ Admission) 1 [facility] PRN PRN PRN Reason: PROTOCOL Stop: 12/12/17 13:59 Ondansetron HCl (Zofran) 4 mg IVP Q6H PRN PRN Reason: Nausea / Vomiting Stop: 12/12/17 09:19 Pantoprazole Sodium (Protonix) 40 mg IVP BID CADE Stop: 12/14/17 16:59 General: no acute distress, well developed, well nourished HEENT: atraumatic, normocephalic, PERRLA, EOMI Neck: supple, no thyromegaly Cardiovascular: S1S2, regular Lungs: clear to auscultation bilaterally, clear to percussion Abdomen: soft, no tender, no distended Extremities: no cyanosis, no clubbing Neurological: awake, alert, oriented Skin: intact - Procedures Procedures: Procedures Procedure Code Date BLOOD TRANSFUSION SERVICE 35472 10/13/17 COLONOSCOPY AND BIOPSY 89682 03/14/12 COLONOSCOPY W/LESION REMOVAL 34393 03/14/12 EGD BIOPSY SINGLE/MULTIPLE 91251 03/14/12 ENDO RECTUM POLYPECTOMY 48.36 03/14/12 ENDOSC POLYPECTOMY OF LG INTEST 45.42 03/14/12 ESOPHAGOGASTRODUODENOSCOPY [EGD] W/CLOSED BIOPSY 45.16 03/14/12 LESION REMOVAL COLONOSCOPY 45912 03/14/12 PACKED CELL TRANSFUSION 99.04 03/14/12 TRANSFUSE NONAUT RED BLOOD CELLS IN PERIPH VEIN, PERC 33640L3 10/13/17 Infectious Disease Assmt/Plan - Assessment Assessment: 1. Septic shock, improving. 2. Pneumonia, questionable. 3. Diabetes mellitus type, uncontrolled. 4. Dementia. 5. Azotemia. 6. Sacral woundsstage 2 small, no sign of infection. - Plan Plan: 1. We will continue vancomycin and Zosyn. 2. Followup on sepsis workup. 3. Blood cs. 4. CXR. 5. 1 liter bolus. 6. IVF support. Nutritional Asmnt/Malnutr-PDOC - Dietary Evaluation Malnutrition Findings (Please click <Entered> for more info): Nutritional Asmnt/Malnutrition Start: 10/13/17 13: 06 Text: Status: Complete Freq: Document 10/13/17 13:06 IMANI (Rec: 10/13/17 13:17 IMANI [id number]) Nutritional Asmnt/Malnutrition Patient General Information Nutritional Screening High Risk Consult Diagnosis Septic shock Pertinent Medical Hx/Surgical Hx diabetes, dyslipidemia, CAD, dementia Subjective Information Consult received for wound present on admissino and marcus scale <12. Patient admitted from [facility] with hyperglycemia (489 BG, then 533). Patient lying in bed at time of visit. Current Diet Order/ Nutrition Support NPO Patient / S.O Not Indicated Pertinent Medications NOvolog, Mag-oxide, abx, zofran Pertinent Labs 10/13: Na 151, BUN 91, glucose 139-255, AST 43, albumin 3.3, TAG 245 Nutritional Hx/Data Height 1.65 m Height (Calculated Centimeters) 165.1 Current Weight (lbs) 61.235 kg Weight (Calculated Kilograms) 61.2 Weight (Calculated Grams) 44305.0 [place] Body Weight 125 % [place] Body Weight 108 Body Mass Index (BMI) 22.4 Recent Weight Change No Weight Status Approriate GI Symptoms GI Symptoms None Last BM None noted since admission Difficult in: None Food Allergies No Cultural/Ethnic/Hindu Belief none indicated Skin Integrity/Comment: Marcus Estimated Nutritional Goals BEE in Kcals: Using Current wt Calories/Kcals/Kg 27-32 kcal/kg- using 61.3 kg Current body weight- sepsis Kcals Calculated ~1786-8646 kcal/day Protein: Using Current wt Protein g/k.2-1.5 gm/kg - Sepsis Protein Calculated ~75-92 gm/day Fluid: ml ~3583-5889 ml/day (1 ml/kcal) Nutritional Problem 2. Problem Problem Altered nutrition related lab values related to Etiology uncontrolled hyperglycemia aeb Signs/Symptoms: glucose 139-255, 1. Problem Problem Inadequate energy intake related to Etiology withholding of nutrition at this time with NPO diet order aeb Signs/Symptoms: meeting <25% of estimated nutrient needs. Intervention/Recommendation Comments 1. Due to hx dysphagia and Gtube, when medically appropriate, start Diabetisource AC at goal of 55 ml/hr to provide 1320 ml volume, 1584 kcal, 79 gm protein. 2. Adjust insulin regimen per MD for optimal glycemic control. Expected Outcomes/Goals Expected Outcomes/Goals meets >75% of estimated nutrient needs, improved skin integrity, nutrition related labs normalize, F/U HR 2-3 days 10/15-
[2017-10-15] MEDS ORDERED: Sodium Chloride 0.9% 1,000 ML IV ONE (13:09)
--- NOTE | 2017-10-16 03:20 | Progress Notes ---
DATE: 10/15/2017 PROBLEM LIST: 1. Acute diabetic with severe hypoglycemia. 2. Constipation. 3. Possibly gastrointestinal bleeding. 4. Possibly Alzheimer. SYMPTOMS: Nil. The patient is much more awake, alert, So at times, restless, no distress, on low dose of Levophed. PHYSICAL EXAMINATION: VITAL SIGNS: Temperature is 98.1, blood pressure 100/60, saturation 100% on supplemental oxygen. NECK: Veins not visualized. CHEST: Shows diminished air entry. HEART: Regular. ABDOMEN: Soft and nontender. LABORATORY DATA: The patient's pertinent laboratory studies today show, white count is 7000, hemoglobin 9.6, potassium is 3.3, chloride is 115 and the patient's endoscopy exam is postponed. PLANS AND SUGGESTIONS: Discussed with nursing staff, needs to start feeding as the patient has been on for the last couple of days and became n.p.o. ____ doing and go from there. We will repeat some of the labs tomorrow. JOB# [id number]
[2017-10-16 04:56] LABS: % BASOPHILS 0.3 % (0.0-2.0); % EOSINOPHILS 1.8 % (0.0-5.0); % LYMPHOCYTES 15.6 % (20.0-50.0); % MONOCYTES 3.8 % (2.0-10.0); % NEUTROPHILS 78.5 % (40.0-80.0); EOSINOPHILE ABSOLUTE 0.1 Th/cmm (0.1-0.4); HEMATOCRIT 28.6 % (41.0-60); HEMOGLOBIN 9.4 gm/dL (12-16); MEAN CELL VOLUME 83.7 fl (81-100); MEAN CORPUSCULAR HEMOGLOBIN 27.7 pg (27.0-31.0); MEAN CORPUSCULAR HGB CONC 33.1 pg (28.0-36.0); MEAN PLATELET VOLUME 9.3 fl; MONOCYTE ABSOLUTE 0.2 Th/cmm (0.3-1.0); NEUTROPHILE ABSOLUTE 5.1 Th/cmm (1.8-8.0); PLATELET COUNT 176 Th/cmm (150-400); RED BLOOD COUNT 3.41 Mil/cmm (3.80-5.20); RED CELL DISTRIBUTION WIDTH 23.4 % (11.5-20.0); WHITE BLOOD COUNT 6.4 Th/cmm (4.8-10.8)
[2017-10-16 05:16] LABS: INR 1.06 (0.5-1.4)
[2017-10-16 05:17] LABS: ANION GAP 10.8 (7.0-16.0); BUN - UREA NITROGEN 8 mg/dL (7-25); CALCIUM SERUM 6.2 mg/dL (8.6-10.3); CARBON DIOXIDE 19.3 mEq/L (21.0-31.0); CHLORIDE 111 mEq/L (98-107); CREATININE - SERUM 0.5 mg/dL (0.6-1.2); GLUCOSE 234 mg/dL (70-105); POTASSIUM SERUM 3.1 mEq/L (3.5-5.1); SODIUM SERUM 138 mEq/L (136-145)
[2017-10-16] MEDS: INSULIN ASPART SLIDING SCALE 100 UNITS/ML UNIT SUBQ SCH ×5 (07:08→22:16)
[2017-10-16] MEDS: D5-0.45NS 1,000 ML IV SCH ×3 (07:10→22:38)
--- NOTE | 2017-10-16 08:24 | General Progress Note ---
Subjective - Review of Systems Service Date: 10/16/17 Subjective: Pt seen and eval. She's awake today and talking. Her youngest daughter has been visiting. No n,v,d or cp. Pt was placed on Levophed drip on 10/15/17, then dc'd on am of 10/16/17. No falls or sz. On iv fluids, now on D5-0.5ns. Stool OB positive. All anticoagulation is being held. GI scheduled EGD for today , 10-16-17. No sz. Afebrile. Status post 1 unit prbc, which was ordered in the ER. Has a GT, but no feedings right now. Objective - Results Result Diagrams: 10/16/17 04:30 10/16/17 04:30 Recent Labs: Laboratory Last Values WBC 6.4 Th/cmm (4.8-10.8) 10/16/17 04:30 RBC 3.41 Mil/cmm (3.80-5.20) L 10/16/17 04:30 Hgb 9.4 gm/dL (12-16) L 10/16/17 04:30 Hct 28.6 % (41.0-60) L 10/16/17 04:30 MCV 83.7 fl (81-100) 10/16/17 04:30 MCH 27.7 pg (27.0-31.0) 10/16/17 04:30 MCHC Differential 33.1 pg (28.0-36.0) 10/16/17 04:30 RDW 23.4 % (11.5-20.0) H 10/16/17 04:30 Plt Count 176 Th/cmm (150-400) 10/16/17 04:30 MPV 9.3 fl 10/16/17 04:30 Neutrophils % 78.5 % (40.0-80.0) 10/16/17 04:30 Lymphocytes % 15.6 % (20.0-50.0) L 10/16/17 04:30 Monocytes % 3.8 % (2.0-10.0) 10/16/17 04:30 Eosinophils % 1.8 % (0.0-5.0) 10/16/17 04:30 Basophils % 0.3 % (0.0-2.0) 10/16/17 04:30 PT 11.0 SECONDS (9.5-11.5) 10/16/17 04:30 INR 1.06 (0.5-1.4) 10/16/17 04:30 PTT (Actin FS) 23.9 SECONDS (26.0-38.0) L 10/16/17 04:30 Specimen Source Arterial 10/14/17 08:15 Sample Site RB 10/14/17 08:15 pH 7.44 (7.35-7.45) 10/14/17 08:15 pCO2 36.0 mmHg (35.0-45.0) 10/14/17 08:15 pO2 110.0 mmHg (80.0-100.0) H 10/14/17 08:15 HCO3 25.4 mEq/L (20.0-26.0) 10/14/17 08:15 Base Excess 0.6 mEq/L (-3.0-3.0) 10/14/17 08:15 O2 Saturation 98.0 % (92.0-100.0) 10/14/17 08:15 Joao Test NA 10/14/17 08:15 Vent Rate NA 10/14/17 08:15 Inspired O2 21 10/14/17 08:15 Tidal Volume NA 10/14/17 08:15 PEEP NA 10/14/17 08:15 Pressure (ins/psv/peep) NA 10/14/17 08:15 Critical Value SH 10/14/17 08:15 Sodium 138 mEq/L (136-145) 10/16/17 04:30 Potassium 3.1 mEq/L (3.5-5.1) L 10/16/17 04:30 Chloride 111 mEq/L (98-107) H 10/16/17 04:30 Carbon Dioxide 19.3 mEq/L (21.0-31.0) L 10/16/17 04:30 Anion Gap 10.8 (7.0-16.0) 10/16/17 04:30 BUN 8 mg/dL (7-25) 10/16/17 04:30 Creatinine 0.5 mg/dL (0.6-1.2) L 10/16/17 04:30 Est GFR ( Amer) TNP 10/16/17 04:30 Est GFR (Non-Af Amer) TNP 10/16/17 04:30 BUN/Creatinine Ratio 16.0 10/16/17 04:30 Glucose 234 mg/dL (70-105) H 10/16/17 04:30 POC Glucose 214 MG/DL (70 - 105) H 10/16/17 07:01 Hemoglobin A1c % 5.4 % (4.0-6.0) 10/13/17 08:30 Whole Bld Lactic Acid 1.91 mmol/L (0.60-1.99) 10/14/17 08:05 Calcium 6.2 mg/dL (8.6-10.3) L 10/16/17 04:30 Magnesium 2.1 mg/dL (1.9-2.7) 10/14/17 08:05 Iron 17 ug/dL (27-139) L 10/13/17 08:30 TIBC 343 ug/dL (250-450) 10/13/17 08:30 Iron Saturation 5 % (15-55) L 10/13/17 08:30 Unsaturated IBC 326 ug/dL (118-369) 10/13/17 08:30 Ferritin 12 ng/mL (15-150) L 10/13/17 08:30 Total Bilirubin 0.4 mg/dL (0.3-1.0) 10/14/17 08:05 Direct Bilirubin 0.15 mg/dL (0.0-0.2) 10/14/17 08:05 AST 35 U/L (13-39) 10/14/17 08:05 ALT 29 U/L (7-52) 10/14/17 08:05 Alkaline Phosphatase 56 U/L (34-104) 10/14/17 08:05 Ammonia 57 umol/L (16-53) H 10/14/17 08:05 B-Natriuretic Peptide 118.0 pg/mL (5.0-100.0) H 10/13/17 08:30 Total Protein 4.9 gm/dL (6.0-8.3) L 10/14/17 08:05 Albumin 2.6 gm/dL (3.7-5.3) L 10/14/17 08:05 Globulin 2.3 gm/dL 10/14/17 08:05 Albumin/Globulin Ratio 1.1 (1.0-1.8) 10/14/17 08:05 Triglycerides 245 mg/dL (<150) H 10/13/17 08:30 Cholesterol 96 mg/dL (<200) 10/13/17 08:30 LDL Cholesterol Direct 40 mg/dL (75-193) L 10/13/17 08:30 HDL Cholesterol 27 mg/dL (23-92) 10/13/17 08:30 Lipase 42 U/L (11-82) 10/14/17 08:05 TSH 8.23 uIU/ml (0.34-5.60) H 10/13/17 08:30 Urine Source CATH 10/13/17 09:45 Urine Color YELLOW 10/13/17 09:45 Urine Clarity CLEAR (CLEAR) 10/13/17 09:45 Urine pH 7.0 (4.6 - 8.0) 10/13/17 09:45 Ur Specific [place] 1.010 (1.005-1.030) 10/13/17 09:45 Urine Protein NEGATIVE mg/dL (NEGATIVE) 10/13/17 09:45 Urine Glucose (UA) NEGATIVE mg/dL (NEGATIVE) 10/13/17 09:45 Urine Ketones NEGATIVE mg/dL (NEGATIVE) 10/13/17 09:45 Urine Blood NEGATIVE (NEGATIVE) 10/13/17 09:45 Urine Nitrate NEGATIVE (NEGATIVE) 10/13/17 09:45 Urine Bilirubin NEGATIVE (NEGATIVE) 10/13/17 09:45 Urine Urobilinogen 0.2 E.U./dL (0.2 - 1.0) 10/13/17 09:45 Ur Leukocyte Esterase NEGATIVE (NEGATIVE) 10/13/17 09:45 Urine RBC NONE SEEN /hpf (0-5) 10/13/17 09:45 Urine WBC NONE SEEN /hpf (0-5) 10/13/17 09:45 Ur Epithelial Cells NONE SEEN /lpf (FEW) 10/13/17 09:45 Urine Bacteria NONE SEEN /hpf (NONE SEEN) 10/13/17 09:45 Stool Occult Blood POSITIVE (NEGATIVE) H 10/14/17 07:00 Vancomycin Trough 11.0 ug/mL (10-20) 10/15/17 07:50 Blood Type O POSITIVE 10/13/17 10:36 Antibody Screen NEGATIVE 10/13/17 10:36 Crossmatch See Detail 10/13/17 10:36 - Physical Exam Vitals and I&O: Vital Signs Temp 98.5 F 10/16/17 04:00 Pulse 84 10/16/17 06:45 Resp 16 10/16/17 06:00 BP 102/60 10/16/17 06:45 Pulse Ox 100 10/16/17 06:00 Intake & Output 10/15/17 10/16/17 10/16/17 18:59 06:59 18:59 Intake Total 1755.679 009.401 8351 Output Total 500 500 Balance 1255.679 612.247 5394 Weight (lbs) 60.555 kg 61.235 kg Intake: Intake, IV Amount 1685.679 932.788 8812 D5-0.45NS 1,000 ml @ 125 1218.75 683.727 5056 mls/hr IV .Q8H [facility] Rx#: [id number] Norepinephrine 4 mg In 66.929 Dextrose 5% 250 ml @ 4 MCG/MIN 15.24 mls/hr IV TITR PRN Rx#:[id number] Piperacillin Sodium/ 150 50 50 Tazobact 3.375 gm In Sodium Chloride 0.9% 50 ml @ 100 mls/hr IV Q6HR [facility] Rx#:[id number] Vancomycin HCl 1 gm In 250 Sodium Chloride 0.9% 250 ml @ 165 mls/hr IV Q24H [facility] Rx#:[id number] Oral 0 Tube Feeding 0 200 Other 70 Output: Urine 500 500 Other: # Bowel Movements 0 1 Active Medications: Current Medications Acetaminophen (Tylenol) 650 mg PO Q6H PRN PRN Reason: HEADACHE/TEMP ABOVE 100F Stop: 12/12/17 09:19 Magnesium Sulfate (Magnesium Sulfate Premix) 2 gm in 50 mls @ 25 mls/hr IV DAILY PRN PRN Reason: Magnesium level less than 1.6 Stop: 12/12/17 09:19 Piperacillin Sod/Tazobactam (Sod 3.375 gm/ Sodium Chloride) 50 mls @ 100 mls/ hr IV Q6HR [facility] Stop: 12/12/17 11:59 Last Infusion: 10/16/17 07:28 Dose: Infused Dextrose/Sodium Chloride (D5-0.45ns) 1,000 mls @ 125 mls/hr IV .Q8H [facility] Stop: 12/12/17 20:31 Last Admin: 10/16/17 07:10 Dose: 125 mls/hr Norepinephrine Bitartrate 4 mg (/ Dextrose) 254 mls @ 15.24 mls/hr IV TITR PRN ; Protocol; 4 MCG/MIN PRN Reason: BP MAINTENANCE (PER PROTOCOL) Stop: 12/14/17 10:17 Last Admin: 10/15/17 16:45 Dose: 2 mcg/min, 7.62 mls/hr Vancomycin HCl 1 gm/ Dextrose 250 mls @ 165 mls/hr IV Q24H [facility] Stop: 12/15/17 08:59 Insulin Aspart (Novolog Insulin Sliding Scale) 0 units SUBQ ACHS CADE PRN Reason: Protocol Stop: 12/12/17 11:29 Last Admin: 10/16/17 07:08 Dose: 4 units Magnesium Oxide (Mag-Oxide) 400 mg PO BID PRN PRN Reason: Mg less than 1.9 Stop: 12/12/17 09:19 Miscellaneous (Vancomycin Iv Per Pharmacy) 1 ea PRN PRN PRN Reason: PROTOCOL Stop: 12/12/17 09:17 Miscellaneous (Zosyn Iv Per Pharmacy) 1 [facility] PRN PRN PRN Reason: PROTOCOL Stop: 12/12/17 09:17 Miscellaneous (Vte Chemical Prophylaxis Screen/ Admission) 1 ea PRN PRN PRN Reason: PROTOCOL Stop: 12/12/17 13:59 Ondansetron HCl (Zofran) 4 mg IVP Q6H PRN PRN Reason: Nausea / Vomiting Stop: 12/12/17 09:19 Pantoprazole Sodium (Protonix) 40 mg IVP BID [facility] Stop: 12/14/17 16:59 Last Admin: 10/15/17 16:28 Dose: 40 mg General: No acute distress HEENT: Atraumatic, PERRLA, EOMI Neck: Supple, no JVD Cardiovascular: Regular rate Lungs: Other (Decreased BS bl) Abdomen: Bowel sounds, Soft, Other (GT intact), no Tender, no Hepatomegaly Extremities: no Clubbing Neurological: Sensation intact Skin: no Rash, no Breakdown Psych/Mental Status: Other (No pyshosis) - Procedures Procedures: Procedures Procedure Code Date BLOOD TRANSFUSION SERVICE 73301 10/13/17 COLONOSCOPY AND BIOPSY 24335 03/14/12 COLONOSCOPY W/LESION REMOVAL 05259 03/14/12 EGD BIOPSY SINGLE/MULTIPLE 11370 03/14/12 ENDO RECTUM POLYPECTOMY 48.36 03/14/12 ENDOSC POLYPECTOMY OF LG INTEST 45.42 03/14/12 ESOPHAGOGASTRODUODENOSCOPY [EGD] W/CLOSED BIOPSY 45.16 03/14/12 LESION REMOVAL COLONOSCOPY 55477 03/14/12 PACKED CELL TRANSFUSION 99.04 03/14/12 TRANSFUSE NONAUT RED BLOOD CELLS IN PERIPH VEIN, PERC 16919Q4 10/13/17 Assessment/Plan - Assessment Assessment: Septic shock Hypovolemic Hypernatremia DM-OOC Mild Manlut Severe anemia with possible GI bleed ME CAD Dyslipid Hypokalemia - Plan Plan: PT seen by ID, GI, and Pulm. K rider given on 10/15/17. On aggressive hydration. She was placed on levophed drip on 10/15/17, then dc'd on am on 10/16/17. Pt going for EGD today on 10/16/17. Pt had a colonoscopy in may [address] [facility]. On Vanco and Zosyn. On FSBS and riss. On iv d5-0.5ns and protonix drip. FU on chem 7 and cbc. FU on cultures. Discussed care with RN. Will transfer pt out of the ICU if pt's bp is maintained. Fu on EGD results. Nutritional Asmnt/Malnutr-PDOC - Dietary Evaluation Malnutrition Findings (Please click <Entered> for more info): Nutritional Asmnt/Malnutrition Start: 10/13/17 13: 06 Text: Status: Complete Freq: Document 10/13/17 13:06 IMANI (Rec: 10/13/17 13:17 [id number]) Nutritional Asmnt/Malnutrition Patient General Information Nutritional Screening High Risk Consult Diagnosis Septic shock Pertinent Medical Hx/Surgical Hx diabetes, dyslipidemia, CAD, dementia Subjective Information Consult received for wound present on admissino and marcus scale <12. Patient admitted from [facility] with hyperglycemia (489 BG, then 533). Patient lying in bed at time of visit. Current Diet Order/ Nutrition Support NPO Patient / S.O Not Indicated Pertinent Medications NOvolog, Mag-oxide, abx, zofran Pertinent Labs 10/13: Na 151, BUN 91, glucose 139-255, AST 43, albumin 3.3, TAG 245 Nutritional Hx/Data Height 1.65 m Height (Calculated Centimeters) 165.1 Current Weight (lbs) 61.235 kg Weight (Calculated Kilograms) 61.2 Weight (Calculated Grams) 18926.0 [place] Body Weight 125 % [place] Body Weight 108 Body Mass Index (BMI) 22.4 Recent Weight Change No Weight Status Approriate GI Symptoms GI Symptoms None Last BM None noted since admission Difficult in: None Food Allergies No Cultural/Ethnic/[employer] Belief none indicated Skin Integrity/Comment: Marcus Estimated Nutritional Goals BEE in Kcals: Using Current wt Calories/Kcals/Kg 27-32 kcal/kg- using 61.3 kg Current body weight- sepsis Kcals Calculated ~3022-1113 kcal/day Protein: Using Current wt Protein g/k.2-1.5 gm/kg - Sepsis Protein Calculated ~75-92 gm/day Fluid: ml ~9754-2154 ml/day (1 ml/kcal) Nutritional Problem 2. Problem Problem Altered nutrition related lab values related to Etiology uncontrolled hyperglycemia aeb Signs/Symptoms: glucose 139-255, 1. Problem Problem Inadequate energy intake related to Etiology withholding of nutrition at this time with NPO diet order aeb Signs/Symptoms: meeting <25% of estimated nutrient needs. Intervention/Recommendation Comments 1. Due to hx dysphagia and Gtube, when medically appropriate, start Diabetisource AC at goal of 55 ml/hr to provide 1320 ml volume, 1584 kcal, 79 gm protein. 2. Adjust insulin regimen per MD for optimal glycemic control. Expected Outcomes/Goals Expected Outcomes/Goals meets >75% of estimated nutrient needs, improved skin integrity, nutrition related labs normalize, F/U HR 2-3 days 10/15-
--- NOTE | 2017-10-16 08:29 | Diagnostic Imaging Report ---
CHEST X-RAY: AP view INDICATION: Shortness of breath COMPARISON: 10/14/2017 FINDINGS: Mild chronic lung changes are noted with no focal consolidation or pleural effusions. Heart size is normal. Atherosclerosis is noted. Degenerative changes of the spine are noted. Cholecystectomy clips are noted. IMPRESSION: Mild chronic lung changes. No focal consolidation identified. Atherosclerotic vascular disease.
[2017-10-16] MEDS ORDERED: Potassium Chloride 40 MEQ, Lidocaine 1% 20mL Vial 25 MG in Sodium Chloride 0.9% 250 ML IV PRN (09:00)
--- NOTE | 2017-10-16 12:00 | Consultation ---
DATE OF CONSULTATION: 10/15/[address] Chavez. HISTORY AND PHYSICAL: This is an 86-year-old female patient, who was [facility] because of altered level of consciousness. The patient was found to have severe anemia, respiratory failure. The patient was given transfusion. The patient developed hypotension. The patient is on Levophed and hence cardiac consult is requested. PAST MEDICAL HISTORY: Acute respiratory failure, hypotension, diabetes mellitus type 2, dementia, aspiration pneumonia, GI bleed with anemia, anxiety, melanoma, osteoporosis. FAMILY HISTORY: Unremarkable. SOCIAL HISTORY: No history of smoking or alcohol abuse. ALLERGIES: No known allergies. PHYSICAL EXAMINATION: VITAL SIGNS: Blood pressure 90 systolic, on Levophed; pulse 100; respirations 28. HEAD: Normocephalic. No lumps or bumps. EYES: Pupils equal and reactive to light. Fundi show AV nicking, sclerae white, conjunctivae pink. NECK: Carotid 2+. Normal upstroke. JVD flat. Thyroid not palpable. Lymph nodes not palpable. CHEST: Shows increased AP diameter. No kyphosis, scoliosis. LUNGS: Bilateral bronchovesicular breath sounds. Bilateral wheezing, rhonchi, prolonged expiration. HEART: PMI fifth intercostal space with lateral to midclavicular line. S1 irregular. S2, S3, S4. Soft systolic murmur. ABDOMEN: Soft. Liver and spleen not palpable. No organomegaly. Bowel sounds active. NEUROLOGIC: Unremarkable. EXTREMITIES: Peripheral pulses 2+. No pedal edema. CLINICAL IMPRESSION: Acute respiratory failure, severe anemia with blood transfusion, hypotension, diabetes mellitus type 2, dementia, aspiration pneumonia, gastrointestinal bleed, anxiety, melanoma, osteoporosis. PLAN: We will continue the patient on Levophed and continue with transfusion and IV antibiotics. [facility]# [id number]
--- NOTE | 2017-10-16 15:13 | Operative Report ---
DATE OF SURGERY: 10/16/2017 INPATIENT EGD REPORT PROCEDURE PERFORMED: EGD with biopsy. ENDOSCOPIST: Martín Cook M.D. PREOPERATIVE DIAGNOSES: Melena and anemia. POSTOPERATIVE DIAGNOSES: Gastric ulcer and duodenal ulcer. INDICATION: The patient is an 86-year-old female who has dysphagia and G-tube dependence, who came into the hospital 2 days ago with septic shock, but was also found to have anemia to 6.8 and melena on exam. She is here for EGD. CONSENT: Informed consent was obtained from the patient and the patient's family. The risks and benefits of the procedure were discussed and include but are not limited to infection, bleeding, perforation, need for surgery, cardiopulmonary complications, missed pathology, and . The patient indicated understanding these risks and wished to go forward with the procedure and signed the consent form. ANESTHESIA: This procedure was performed under the care of the general anesthesiologist in the main operating room. PROCEDURE IN DETAIL: After initiation of general anesthesia, the patient was placed in the left lateral decubitus position and a mouthpiece was inserted and secured. A gastroscope was then introduced into the mouth and guided under direct visualization into the esophagus, stomach, and duodenum. The scope was then slowly withdrawn making sure to examine the entire mucosa carefully. Retroflexion was performed in the stomach before straightening and withdrawal from the body. There was no obvious sign of complication at the end of procedure. FINDINGS: Esophagus: The GE junction was located at 35 cm from the incisors. There was no esophagitis or mass lesion in the esophagus. Stomach: The G-tube was seen to be in the lesser curve along the gastric body and was very loose. The external bumper was then tightened, so that there was 1 cm of space between the skin and the external bumper. The internal balloon appeared normal without any ulceration around the G-tube site. The cardia and fundus appeared normal as well. There was what appeared to be a healing ulcer at the angularis. There was no other mass lesion or ulcer within the antrum. Excisional biopsies were taken from the antrum and from the ulcer edge for close testing and histology. Duodenum: There was a 1 cm duodenal bulb ulcer on the anterior side of the duodenal bulb. There was no visible vessel in the base was observed to be clean. Excisional biopsies were taken from the ulcer edge. The second portion appeared endoscopically normal. IMPRESSION: 1. Gastric ulcer, status post biopsy. 2. Duodenal bulb ulcer, status post biopsy. IMPRESSION: Source of bleeding is likely the duodenal ulcer given the appearance, although now this is in the stages of healing with PPI. RECOMMENDATIONS: 1. We will follow up the biopsies from both the antrum and the duodenum and treat any H. pylori if found. 2. The patient should be on twice daily PPI therapy for at least 6 weeks and then daily after that. 3. Can start the tube feeds later today and advance to goal rate. 4. The patient already has had colonoscopy at [facility] last year, thus we are going not need to do at this time. I will continue to follow the patient. Thank you for allowing me to participate in her care. Please call me with any further questions. [facility]# [id number]
--- NOTE | 2017-10-17 03:55 | Progress Notes ---
DATE: 10/16/2017 PULMONARY/CRITICAL CARE PROGRESS NOTE PROBLEM LIST: 1. Status post acute hyperglycemia. 2. Bleeding, question of GI. No active bleeding found. 3. Constipation. 4. Chronic encephalopathic state. SYMPTOMS: The patient is awake. Complains of pain in the leg in the upper thigh. No other related symptomatology otherwise. PHYSICAL EXAMINATION: VITAL SIGNS: The patient's BP is fairly stable. Pulse is in 80s, blood pressure 116/92, and saturation is 98%. NECK: Veins not visualized. CHEST: Shows clear with diminished air entry. HEART: Regular. ABDOMEN: Slightly distended with G-tube; otherwise, unremarkable. EXTREMITIES: Shows STDs, but otherwise unremarkable. DIAGNOSTIC DATA: The patient's chest x-ray shows some mild interstitial disease, which seems to be chronic. LABORATORY DATA: White count of 6.4, hemoglobin 9.4. Potassium is 3.1 and sugar is in mid-to-low ____. ASSESSMENT: The patient is clinically seemingly stable, no evidence of active bleeding and stable hemodynamically. PLANS AND SUGGESTIONS: We will go ahead and restart the feeding and recheck the lab again tomorrow and hopefully if it remains stable discharge planning may be a consideration and go from there. JOB# [id number]
[2017-10-17 04:41] LABS: % BASOPHILS 0.6 % (0.0-2.0); % EOSINOPHILS 2.5 % (0.0-5.0); % MONOCYTES 5.3 % (2.0-10.0); % NEUTROPHILS 68.6 % (40.0-80.0); EOSINOPHILE ABSOLUTE 0.1 Th/cmm (0.1-0.4); HEMATOCRIT 26.9 % (41.0-60); HEMOGLOBIN 8.8 gm/dL (12-16); LYMPHOCYTE ABSOLUTE 1.2 Th/cmm (1.5-3.0); MEAN CELL VOLUME 82.8 fl (81-100); MEAN CORPUSCULAR HGB CONC 32.6 pg (28.0-36.0); MEAN PLATELET VOLUME 9.2 fl; MONOCYTE ABSOLUTE 0.3 Th/cmm (0.3-1.0); NEUTROPHILE ABSOLUTE 3.6 Th/cmm (1.8-8.0); PLATELET COUNT 159 Th/cmm (150-400); RED BLOOD COUNT 3.25 Mil/cmm (3.80-5.20); RED CELL DISTRIBUTION WIDTH 22.5 % (11.5-20.0); WHITE BLOOD COUNT 5.2 Th/cmm (4.8-10.8)
[2017-10-17 04:51] LABS: ANION GAP 9.6 (7.0-16.0); BUN - UREA NITROGEN 3 mg/dL (7-25); CALCIUM SERUM 6.1 mg/dL (8.6-10.3); CARBON DIOXIDE 19.6 mEq/L (21.0-31.0); CHLORIDE 117 mEq/L (98-107); CREATININE - SERUM 0.4 mg/dL (0.6-1.2); GLUCOSE 210 mg/dL (70-105); POTASSIUM SERUM 3.2 mEq/L (3.5-5.1); SODIUM SERUM 143 mEq/L (136-145)
--- NOTE | 2017-10-17 07:22 | GI Progress Note ---
Subjective - Review of Systems Service Date: 10/17/17 Subjective: EGD yesterday found gastric and duodenal ulcer. Passing some melena still. Hgb stable Objective - Results Result Diagrams: 10/17/17 04:15 10/17/17 04:15 Recent Labs: Laboratory Last Values WBC 5.2 Th/cmm (4.8-10.8) 10/17/17 04:15 RBC 3.25 Mil/cmm (3.80-5.20) L 10/17/17 04:15 Hgb 8.8 gm/dL (12-16) L 10/17/17 04:15 Hct 26.9 % (41.0-60) L 10/17/17 04:15 MCV 82.8 fl (81-100) 10/17/17 04:15 MCH 27.0 pg (27.0-31.0) 10/17/17 04:15 MCHC Differential 32.6 pg (28.0-36.0) 10/17/17 04:15 RDW 22.5 % (11.5-20.0) H 10/17/17 04:15 Plt Count 159 Th/cmm (150-400) 10/17/17 04:15 MPV 9.2 fl 10/17/17 04:15 Neutrophils % 68.6 % (40.0-80.0) 10/17/17 04:15 Lymphocytes % 23.0 % (20.0-50.0) 10/17/17 04:15 Monocytes % 5.3 % (2.0-10.0) 10/17/17 04:15 Eosinophils % 2.5 % (0.0-5.0) 10/17/17 04:15 Basophils % 0.6 % (0.0-2.0) 10/17/17 04:15 PT 11.0 SECONDS (9.5-11.5) 10/16/17 04:30 INR 1.06 (0.5-1.4) 10/16/17 04:30 PTT (Actin FS) 23.9 SECONDS (26.0-38.0) L 10/16/17 04:30 Specimen Source Arterial 10/14/17 08:15 Sample Site RB 10/14/17 08:15 pH 7.44 (7.35-7.45) 10/14/17 08:15 pCO2 36.0 mmHg (35.0-45.0) 10/14/17 08:15 pO2 110.0 mmHg (80.0-100.0) H 10/14/17 08:15 HCO3 25.4 mEq/L (20.0-26.0) 10/14/17 08:15 Base Excess 0.6 mEq/L (-3.0-3.0) 10/14/17 08:15 O2 Saturation 98.0 % (92.0-100.0) 10/14/17 08:15 Joao Test NA 10/14/17 08:15 Vent Rate NA 10/14/17 08:15 Inspired O2 21 10/14/17 08:15 Tidal Volume NA 10/14/17 08:15 PEEP NA 10/14/17 08:15 Pressure (ins/psv/peep) NA 10/14/17 08:15 Critical Value SH 10/14/17 08:15 Sodium 143 mEq/L (136-145) 10/17/17 04:15 Potassium 3.2 mEq/L (3.5-5.1) L 10/17/17 04:15 Chloride 117 mEq/L (98-107) H 10/17/17 04:15 Carbon Dioxide 19.6 mEq/L (21.0-31.0) L 10/17/17 04:15 Anion Gap 9.6 (7.0-16.0) 10/17/17 04:15 BUN 3 mg/dL (7-25) L 10/17/17 04:15 Creatinine 0.4 mg/dL (0.6-1.2) L 10/17/17 04:15 Est GFR ( Amer) TNP 10/17/17 04:15 Est GFR (Non-Af Amer) TNP 10/17/17 04:15 BUN/Creatinine Ratio 7.5 10/17/17 04:15 Glucose 210 mg/dL (70-105) H 10/17/17 04:15 POC Glucose 196 MG/DL (70 - 105) H 10/17/17 06:18 Hemoglobin A1c % 5.4 % (4.0-6.0) 10/13/17 08:30 Whole Bld Lactic Acid 1.91 mmol/L (0.60-1.99) 10/14/17 08:05 Calcium 6.1 mg/dL (8.6-10.3) L 10/17/17 04:15 Magnesium 1.7 mg/dL (1.9-2.7) L 10/16/17 04:30 Iron 17 ug/dL (27-139) L 10/13/17 08:30 TIBC 343 ug/dL (250-450) 10/13/17 08:30 Iron Saturation 5 % (15-55) L 10/13/17 08:30 Unsaturated IBC 326 ug/dL (118-369) 10/13/17 08:30 Ferritin 12 ng/mL (15-150) L 10/13/17 08:30 Total Bilirubin 0.4 mg/dL (0.3-1.0) 10/14/17 08:05 Direct Bilirubin 0.15 mg/dL (0.0-0.2) 10/14/17 08:05 AST 35 U/L (13-39) 10/14/17 08:05 ALT 29 U/L (7-52) 10/14/17 08:05 Alkaline Phosphatase 56 U/L (34-104) 10/14/17 08:05 Ammonia 57 umol/L (16-53) H 10/14/17 08:05 B-Natriuretic Peptide 118.0 pg/mL (5.0-100.0) H 10/13/17 08:30 Total Protein 4.9 gm/dL (6.0-8.3) L 10/14/17 08:05 Albumin 2.6 gm/dL (3.7-5.3) L 10/14/17 08:05 Globulin 2.3 gm/dL 10/14/17 08:05 Albumin/Globulin Ratio 1.1 (1.0-1.8) 10/14/17 08:05 Triglycerides 245 mg/dL (<150) H 10/13/17 08:30 Cholesterol 96 mg/dL (<200) 10/13/17 08:30 LDL Cholesterol Direct 40 mg/dL (75-193) L 10/13/17 08:30 HDL Cholesterol 27 mg/dL (23-92) 10/13/17 08:30 Lipase 42 U/L (11-82) 10/14/17 08:05 TSH 8.23 uIU/ml (0.34-5.60) H 10/13/17 08:30 Urine Source CATH 10/13/17 09:45 Urine Color YELLOW 10/13/17 09:45 Urine Clarity CLEAR (CLEAR) 10/13/17 09:45 Urine pH 7.0 (4.6 - 8.0) 10/13/17 09:45 Ur Specific [place] 1.010 (1.005-1.030) 10/13/17 09:45 Urine Protein NEGATIVE mg/dL (NEGATIVE) 10/13/17 09:45 Urine Glucose (UA) NEGATIVE mg/dL (NEGATIVE) 10/13/17 09:45 Urine Ketones NEGATIVE mg/dL (NEGATIVE) 10/13/17 09:45 Urine Blood NEGATIVE (NEGATIVE) 10/13/17 09:45 Urine Nitrate NEGATIVE (NEGATIVE) 10/13/17 09:45 Urine Bilirubin NEGATIVE (NEGATIVE) 10/13/17 09:45 Urine Urobilinogen 0.2 E.U./dL (0.2 - 1.0) 10/13/17 09:45 Ur Leukocyte Esterase NEGATIVE (NEGATIVE) 10/13/17 09:45 Urine RBC NONE SEEN /hpf (0-5) 10/13/17 09:45 Urine WBC NONE SEEN /hpf (0-5) 10/13/17 09:45 Ur Epithelial Cells NONE SEEN /lpf (FEW) 10/13/17 09:45 Urine Bacteria NONE SEEN /hpf (NONE SEEN) 10/13/17 09:45 Stool Occult Blood POSITIVE (NEGATIVE) H 10/14/17 07:00 Vancomycin Trough 11.0 ug/mL (10-20) 10/15/17 07:50 Blood Type O POSITIVE 10/13/17 10:36 Antibody Screen NEGATIVE 10/13/17 10:36 Crossmatch See Detail 10/13/17 10:36 - Physical Exam Vitals and I&O: Vital Signs Temp 97.4 F 10/17/17 04:00 Pulse 86 10/17/17 06:00 Resp 14 10/17/17 06:00 BP 143/87 10/17/17 06:00 Pulse Ox 98 10/17/17 06:00 Intake & Output 10/16/17 10/17/17 10/17/17 18:59 06:59 18:59 Intake Total 2056.25 1050 Output Total 2700 Balance -643.75 1050 Weight (lbs) 55.429 kg Intake: Intake, IV Amount 2056.25 1050 D5-0.45NS 1,000 ml @ 125 1706.25 1000 mls/hr IV .Q8H [facility] Rx#: [id number] Piperacillin Sodium/ 100 50 Tazobact 3.375 gm In Sodium Chloride 0.9% 50 ml @ 100 mls/hr IV Q6HR [facility] Rx#:[id number] Vancomycin HCl 1 gm In 250 Dextrose 5% 250 ml @ 165 mls/hr IV Q24H [facility] Rx#: [id number] Tube Feeding 0 Output: Urine 2400 Stool 300 Other: # Bowel Movements 1 Active Medications: Current Medications Acetaminophen (Tylenol) 650 mg PO Q6H PRN PRN Reason: HEADACHE/TEMP ABOVE 100F Stop: 12/12/17 09:19 Magnesium Sulfate (Magnesium Sulfate Premix) 2 gm in 50 mls @ 25 mls/hr IV DAILY PRN PRN Reason: Magnesium level less than 1.6 Stop: 12/12/17 09:19 Piperacillin Sod/Tazobactam (Sod 3.375 gm/ Sodium Chloride) 50 mls @ 100 mls/ hr IV Q6HR [facility] Stop: 12/12/17 11:59 Last Admin: 10/17/17 05:26 Dose: 100 mls/hr Dextrose/Sodium Chloride (D5-0.45ns) 1,000 mls @ 125 mls/hr IV .Q8H [facility] Stop: 12/12/17 20:31 Last Admin: 10/16/17 22:38 Dose: 125 mls/hr Norepinephrine Bitartrate 4 mg (/ Dextrose) 254 mls @ 15.24 mls/hr IV TITR PRN ; Protocol; 4 MCG/MIN PRN Reason: BP MAINTENANCE (PER PROTOCOL) Stop: 12/14/17 10:17 Last Admin: 10/15/17 16:45 Dose: 2 mcg/min, 7.62 mls/hr Vancomycin HCl 1 gm/ Dextrose 250 mls @ 165 mls/hr IV Q24H [facility] Stop: 12/15/17 08:59 Last Infusion: 10/16/17 14:13 Dose: Infused Potassium Chloride 40 meq/Lidocaine HCl 25 mg/ Sodium Chloride 272.5 mls @ 68 mls/hr IV DAILY PRN PRN Reason: k level less than 3.2 Stop: 12/15/17 08:59 Last Admin: 10/16/17 16:19 Dose: 68 mls/hr Insulin Aspart (Novolog Insulin Sliding Scale) 0 units SUBQ ACHS CADE PRN Reason: Protocol Stop: 12/12/17 11:29 Last Admin: 10/16/17 22:16 Dose: Not Given Magnesium Oxide (Mag-Oxide) 400 mg PO BID PRN PRN Reason: Mg less than 1.9 Stop: 12/12/17 09:19 Last Admin: 10/16/17 13:07 Dose: 400 mg Miscellaneous (Vancomycin Iv Per Pharmacy) 1 ea PRN PRN PRN Reason: PROTOCOL Stop: 12/12/17 09:17 Miscellaneous (Zosyn Iv Per Pharmacy) 1 [facility] PRN PRN PRN Reason: PROTOCOL Stop: 12/12/17 09:17 Miscellaneous (Vte Chemical Prophylaxis Screen/ Admission) 1 [facility] PRN PRN PRN Reason: PROTOCOL Stop: 12/12/17 13:59 Ondansetron HCl (Zofran) 4 mg IVP Q6H PRN PRN Reason: Nausea / Vomiting Stop: 12/12/17 09:19 Pantoprazole Sodium (Protonix) 40 mg IVP BID CADE Stop: 12/14/17 16:59 Last Admin: 10/16/17 12:42 Dose: 40 mg Tramadol HCl (Ultram) 50 mg PO Q6HR PRN PRN Reason: Pain (Moderate) Stop: 12/15/17 20:18 Last Admin: 10/16/17 21:15 Dose: 50 mg General: Alert, No acute distress HEENT: Atraumatic, PERRLA, EOMI Neck: Supple, no JVD Cardiovascular: Regular rate Lungs: Other (Decreased BS bl) Abdomen: Bowel sounds, Soft, Other (GT intact), no Tender, no Hepatomegaly Extremities: no Clubbing Neurological: Sensation intact Skin: no Rash, no Breakdown Psych/Mental Status: Other (No pyshosis) - Procedures Procedures: Procedures Procedure Code Date BLOOD TRANSFUSION SERVICE 21535 10/13/17 COLONOSCOPY AND BIOPSY 95893 03/14/12 COLONOSCOPY W/LESION REMOVAL 61606 03/14/12 EGD BIOPSY SINGLE/MULTIPLE 84521 03/14/12 ENDO RECTUM POLYPECTOMY 48.36 03/14/12 ENDOSC POLYPECTOMY OF LG INTEST 45.42 03/14/12 ESOPHAGOGASTRODUODENOSCOPY [EGD] W/CLOSED BIOPSY 45.16 03/14/12 LESION REMOVAL COLONOSCOPY 61273 03/14/12 PACKED CELL TRANSFUSION 99.04 03/14/12 TRANSFUSE NONAUT RED BLOOD CELLS IN PERIPH VEIN, [facility] [id number] 10/13/17 Assessment/Plan - Assessment Assessment: # Anemia # Fecal impaction # Melena # Septic shock # Uncontrolled diabetes Initial hgb was 6.8, and she has responded well to blood products without further melena. EGD on 10/16 showed gastric and duodenal ulcers, s/p biopsies. Colonoscopy already performed at [place] in 05/2017, found polyps as per the daughter's report. Plan: - cont PPI bid for 6 weeks, then can transition to daily -f/u gastric and duodenal biopsies. Treat H pylori if found - cont tube feeding - cycle CBCs, transfuse hgb > 7 - bowel regimen given fecal impaction Thank you for allowing me to participate in this patient's care, please call with any questions
[2017-10-17] MEDS: INSULIN ASPART SLIDING SCALE 100 UNITS/ML UNIT SUBQ SCH ×4 (07:35→22:00)
[2017-10-17] MEDS ORDERED: D5-0.45NS 1,000 ML IV SCH (08:58)
--- NOTE | 2017-10-17 08:59 | General Progress Note ---
Subjective - Review of Systems Service Date: 10/17/17 Subjective: Pt seen and eval. She's awake today and talking. Her youngest daughter has been visiting. No n,v,d or cp. Pt was placed on Levophed drip on 10/15/17, then dc'd on am of 10/16/17. No falls or sz. On IV fluids. Will cut down since she's on GT feedings now. Stool OB positive. All anticoagulation is being held. GI did EGD on 10-16-17, she has gastric and duodenal ulcer. No sz. Afebrile. Status post 1 unit prbc, which was ordered in the ER. Has a GT-feedings resumed by GI on 10/16/17. Objective - Results Result Diagrams: 10/17/17 04:15 10/17/17 04:15 Recent Labs: Laboratory Last Values WBC 5.2 Th/cmm (4.8-10.8) 10/17/17 04:15 RBC 3.25 Mil/cmm (3.80-5.20) L 10/17/17 04:15 Hgb 8.8 gm/dL (12-16) L 10/17/17 04:15 Hct 26.9 % (41.0-60) L 10/17/17 04:15 MCV 82.8 fl (81-100) 10/17/17 04:15 MCH 27.0 pg (27.0-31.0) 10/17/17 04:15 MCHC Differential 32.6 pg (28.0-36.0) 10/17/17 04:15 RDW 22.5 % (11.5-20.0) H 10/17/17 04:15 Plt Count 159 Th/cmm (150-400) 10/17/17 04:15 MPV 9.2 fl 10/17/17 04:15 Neutrophils % 68.6 % (40.0-80.0) 10/17/17 04:15 Lymphocytes % 23.0 % (20.0-50.0) 10/17/17 04:15 Monocytes % 5.3 % (2.0-10.0) 10/17/17 04:15 Eosinophils % 2.5 % (0.0-5.0) 10/17/17 04:15 Basophils % 0.6 % (0.0-2.0) 10/17/17 04:15 PT 11.0 SECONDS (9.5-11.5) 10/16/17 04:30 INR 1.06 (0.5-1.4) 10/16/17 04:30 PTT (Actin FS) 23.9 SECONDS (26.0-38.0) L 10/16/17 04:30 Specimen Source Arterial 10/14/17 08:15 Sample Site RB 10/14/17 08:15 pH 7.44 (7.35-7.45) 10/14/17 08:15 pCO2 36.0 mmHg (35.0-45.0) 10/14/17 08:15 pO2 110.0 mmHg (80.0-100.0) H 10/14/17 08:15 HCO3 25.4 mEq/L (20.0-26.0) 10/14/17 08:15 Base Excess 0.6 mEq/L (-3.0-3.0) 10/14/17 08:15 O2 Saturation 98.0 % (92.0-100.0) 10/14/17 08:15 Joao Test NA 10/14/17 08:15 Vent Rate NA 10/14/17 08:15 Inspired O2 21 10/14/17 08:15 Tidal Volume NA 10/14/17 08:15 PEEP NA 10/14/17 08:15 Pressure (ins/psv/peep) NA 10/14/17 08:15 Critical Value SH 10/14/17 08:15 Sodium 143 mEq/L (136-145) 10/17/17 04:15 Potassium 3.2 mEq/L (3.5-5.1) L 10/17/17 04:15 Chloride 117 mEq/L (98-107) H 10/17/17 04:15 Carbon Dioxide 19.6 mEq/L (21.0-31.0) L 10/17/17 04:15 Anion Gap 9.6 (7.0-16.0) 10/17/17 04:15 BUN 3 mg/dL (7-25) L 10/17/17 04:15 Creatinine 0.4 mg/dL (0.6-1.2) L 10/17/17 04:15 Est GFR ( Amer) TNP 10/17/17 04:15 Est GFR (Non-Af Amer) TNP 10/17/17 04:15 BUN/Creatinine Ratio 7.5 10/17/17 04:15 Glucose 210 mg/dL (70-105) H 10/17/17 04:15 POC Glucose 196 MG/DL (70 - 105) H 10/17/17 06:18 Hemoglobin A1c % 5.4 % (4.0-6.0) 10/13/17 08:30 Whole Bld Lactic Acid 1.91 mmol/L (0.60-1.99) 10/14/17 08:05 Calcium 6.1 mg/dL (8.6-10.3) L 10/17/17 04:15 Magnesium 1.7 mg/dL (1.9-2.7) L 10/16/17 04:30 Iron 17 ug/dL (27-139) L 10/13/17 08:30 TIBC 343 ug/dL (250-450) 10/13/17 08:30 Iron Saturation 5 % (15-55) L 10/13/17 08:30 Unsaturated IBC 326 ug/dL (118-369) 10/13/17 08:30 Ferritin 12 ng/mL (15-150) L 10/13/17 08:30 Total Bilirubin 0.4 mg/dL (0.3-1.0) 10/14/17 08:05 Direct Bilirubin 0.15 mg/dL (0.0-0.2) 10/14/17 08:05 AST 35 U/L (13-39) 10/14/17 08:05 ALT 29 U/L (7-52) 10/14/17 08:05 Alkaline Phosphatase 56 U/L (34-104) 10/14/17 08:05 Ammonia 57 umol/L (16-53) H 10/14/17 08:05 B-Natriuretic Peptide 118.0 pg/mL (5.0-100.0) H 10/13/17 08:30 Total Protein 4.9 gm/dL (6.0-8.3) L 10/14/17 08:05 Albumin 2.6 gm/dL (3.7-5.3) L 10/14/17 08:05 Globulin 2.3 gm/dL 10/14/17 08:05 Albumin/Globulin Ratio 1.1 (1.0-1.8) 10/14/17 08:05 Triglycerides 245 mg/dL (<150) H 10/13/17 08:30 Cholesterol 96 mg/dL (<200) 10/13/17 08:30 LDL Cholesterol Direct 40 mg/dL (75-193) L 10/13/17 08:30 HDL Cholesterol 27 mg/dL (23-92) 10/13/17 08:30 Lipase 42 U/L (11-82) 10/14/17 08:05 TSH 8.23 uIU/ml (0.34-5.60) H 10/13/17 08:30 Urine Source CATH 10/13/17 09:45 Urine Color YELLOW 10/13/17 09:45 Urine Clarity CLEAR (CLEAR) 10/13/17 09:45 Urine pH 7.0 (4.6 - 8.0) 10/13/17 09:45 Ur Specific [place] 1.010 (1.005-1.030) 10/13/17 09:45 Urine Protein NEGATIVE mg/dL (NEGATIVE) 10/13/17 09:45 Urine Glucose (UA) NEGATIVE mg/dL (NEGATIVE) 10/13/17 09:45 Urine Ketones NEGATIVE mg/dL (NEGATIVE) 10/13/17 09:45 Urine Blood NEGATIVE (NEGATIVE) 10/13/17 09:45 Urine Nitrate NEGATIVE (NEGATIVE) 10/13/17 09:45 Urine Bilirubin NEGATIVE (NEGATIVE) 10/13/17 09:45 Urine Urobilinogen 0.2 E.U./dL (0.2 - 1.0) 10/13/17 09:45 Ur Leukocyte Esterase NEGATIVE (NEGATIVE) 10/13/17 09:45 Urine RBC NONE SEEN /hpf (0-5) 10/13/17 09:45 Urine WBC NONE SEEN /hpf (0-5) 10/13/17 09:45 Ur Epithelial Cells NONE SEEN /lpf (FEW) 10/13/17 09:45 Urine Bacteria NONE SEEN /hpf (NONE SEEN) 10/13/17 09:45 Stool Occult Blood POSITIVE (NEGATIVE) H 10/14/17 07:00 Vancomycin Trough 11.0 ug/mL (10-20) 10/15/17 07:50 Blood Type O POSITIVE 10/13/17 10:36 Antibody Screen NEGATIVE 10/13/17 10:36 Crossmatch See Detail 10/13/17 10:36 - Physical Exam Vitals and I&O: Vital Signs Temp 97.4 F 10/17/17 04:00 Pulse 83 10/17/17 08:13 Resp 14 10/17/17 08:13 BP 144/66 10/17/17 07:00 Pulse Ox 98 10/17/17 08:13 Intake & Output 10/16/17 10/17/17 10/17/17 18:59 06:59 18:59 Intake Total 2056.25 1050 375 Output Total 2700 1350 Balance -643.75 1050 -975 Weight (lbs) 55.429 kg 56.382 kg Intake: Intake, IV Amount 2056.25 1050 D5-0.45NS 1,000 ml @ 125 1706.25 1000 mls/hr IV .Q8H [facility] Rx#: [id number] Piperacillin Sodium/ 100 50 Tazobact 3.375 gm In Sodium Chloride 0.9% 50 ml @ 100 mls/hr IV Q6HR [facility] Rx#:[id number] Vancomycin HCl 1 gm In 250 Dextrose 5% 250 ml @ 165 mls/hr IV Q24H [facility] Rx#: [id number] Tube Feeding 0 375 Output: Urine 2400 1350 Stool 300 Other: # Bowel Movements 1 2 Active Medications: Current Medications Acetaminophen (Tylenol) 650 mg PO Q6H PRN PRN Reason: HEADACHE/TEMP ABOVE 100F Stop: 12/12/17 09:19 Magnesium Sulfate (Magnesium Sulfate Premix) 2 gm in 50 mls @ 25 mls/hr IV DAILY PRN PRN Reason: Magnesium level less than 1.6 Stop: 12/12/17 09:19 Piperacillin Sod/Tazobactam (Sod 3.375 gm/ Sodium Chloride) 50 mls @ 100 mls/ hr IV Q6HR [facility] Stop: 12/12/17 11:59 Last Admin: 10/17/17 05:26 Dose: 100 mls/hr Dextrose/Sodium Chloride (D5-0.45ns) 1,000 mls @ 125 mls/hr IV .Q8H [facility] Stop: 12/12/17 20:31 Last Admin: 10/16/17 22:38 Dose: 125 mls/hr Norepinephrine Bitartrate 4 mg (/ Dextrose) 254 mls @ 15.24 mls/hr IV TITR PRN ; Protocol; 4 MCG/MIN PRN Reason: BP MAINTENANCE (PER PROTOCOL) Stop: 12/14/17 10:17 Last Admin: 10/15/17 16:45 Dose: 2 mcg/min, 7.62 mls/hr Vancomycin HCl 1 gm/ Dextrose 250 mls @ 165 mls/hr IV Q24H [facility] Stop: 12/15/17 08:59 Last Infusion: 10/16/17 14:13 Dose: Infused Potassium Chloride 40 meq/Lidocaine HCl 25 mg/ Sodium Chloride 272.5 mls @ 68 mls/hr IV DAILY PRN PRN Reason: k level less than 3.2 Stop: 12/15/17 08:59 Last Admin: 10/16/17 16:19 Dose: 68 mls/hr Insulin Aspart (Novolog Insulin Sliding Scale) 0 units SUBQ ACHS CADE PRN Reason: Protocol Stop: 12/12/17 11:29 Last Admin: 10/17/17 07:35 Dose: 2 units Magnesium Oxide (Mag-Oxide) 400 mg PO BID PRN PRN Reason: Mg less than 1.9 Stop: 12/12/17 09:19 Last Admin: 10/16/17 13:07 Dose: 400 mg Miscellaneous (Vancomycin Iv Per Pharmacy) 1 [facility] PRN PRN PRN Reason: PROTOCOL Stop: 12/12/17 09:17 Miscellaneous (Zosyn Iv Per Pharmacy) 1 [facility] PRN PRN PRN Reason: PROTOCOL Stop: 12/12/17 09:17 Miscellaneous (Vte Chemical Prophylaxis Screen/ Admission) 1 [facility] PRN PRN PRN Reason: PROTOCOL Stop: 12/12/17 13:59 Ondansetron HCl (Zofran) 4 mg IVP Q6H PRN PRN Reason: Nausea / Vomiting Stop: 12/12/17 09:19 Pantoprazole Sodium (Protonix) 40 mg IVP BID [facility] Stop: 12/14/17 16:59 Last Admin: 10/16/17 12:42 Dose: 40 mg Polyethylene Glycol (Miralax) 17 gm PO BID [facility] Stop: 12/16/17 08:59 Tramadol HCl (Ultram) 50 mg PO Q6HR PRN PRN Reason: Pain (Moderate) Stop: 12/15/17 20:18 Last Admin: 10/16/17 21:15 Dose: 50 mg General: Alert, No acute distress HEENT: Atraumatic, PERRLA, EOMI Neck: Supple, no JVD Cardiovascular: Regular rate Lungs: Other (Decreased BS bl) Abdomen: Bowel sounds, Soft, Other (GT intact), no Tender, no Hepatomegaly Extremities: no Clubbing Neurological: Sensation intact Skin: no Rash, no Breakdown Psych/Mental Status: Other (No pyshosis) - Procedures Procedures: Procedures Procedure Code Date BLOOD TRANSFUSION SERVICE 62514 10/13/17 COLONOSCOPY AND BIOPSY 24619 03/14/12 COLONOSCOPY W/LESION REMOVAL 40828 03/14/12 EGD BIOPSY SINGLE/MULTIPLE 70447 03/14/12 ENDO RECTUM POLYPECTOMY 48.36 03/14/12 ENDOSC POLYPECTOMY OF LG INTEST 45.42 03/14/12 ESOPHAGOGASTRODUODENOSCOPY [EGD] W/CLOSED BIOPSY 45.16 03/14/12 LESION REMOVAL COLONOSCOPY 73564 03/14/12 PACKED CELL TRANSFUSION 99.04 03/14/12 TRANSFUSE NONAUT RED BLOOD CELLS IN PERIPH VEIN, PERC 68286Y1 10/13/17 Assessment/Plan - Assessment Assessment: Septic shock Hypovolemic Hypernatremia DM-OOC Mild Manlut Severe anemia with possible GI bleed-Gastric and Duondenal ulcer ME CAD Dyslipid Hypokalemia - Plan Plan: PT seen by ID, GI, and Pulm. K rider given on 10/15/17. Another KCl today. On aggressive hydration. She was placed on levophed drip on 10/15/17, then dc'd on am on 10/16/17. No falls or sz. On IV fluids. Will reduce rate since she's on GT feedings now. Downgrade to tele today. No drips. Stool OB positive. All anticoagulation is being held. GI did EGD on 10-16-17, she has gastric and duodenal ulcer. No sz. Afebrile. Status post 1 unit prbc, which was ordered in the ER. Has a GT-feedings resumed by GI on 10/16/17. Nutritional Asmnt/Malnutr-PDOC - Dietary Evaluation Malnutrition Findings (Please click <Entered> for more info): Nutritional Asmnt/Malnutrition Start: 10/13/17 13: 06 Text: Status: Complete Freq: Document 10/13/17 13:06 [email or web address] (Rec: 10/13/17 13:17 IMANI JONATHON- [id number]) Nutritional Asmnt/Malnutrition Patient General Information Nutritional Screening High Risk Consult Diagnosis Septic shock Pertinent Medical Hx/Surgical Hx diabetes, dyslipidemia, CAD, dementia Subjective Information Consult received for wound present on admissino and marcus scale <12. Patient admitted from [facility] with hyperglycemia (489 BG, then 533). Patient lying in bed at time of visit. Current Diet Order/ Nutrition Support NPO Patient / S.O Not Indicated Pertinent Medications NOvolog, Mag-oxide, abx, zofran Pertinent Labs 10/13: Na 151, BUN 91, glucose 139-255, AST 43, albumin 3.3, TAG 245 Nutritional Hx/Data Height 1.65 m Height (Calculated Centimeters) 165.1 Current Weight (lbs) 61.235 kg Weight (Calculated Kilograms) 61.2 Weight (Calculated Grams) 78174.0 [place] Body Weight 125 % [place] Body Weight 108 Body Mass Index (BMI) 22.4 Recent Weight Change No Weight Status Approriate GI Symptoms GI Symptoms None Last BM None noted since admission Difficult in: None Food Allergies No Cultural/Ethnic/Orthodox Belief none indicated Skin Integrity/Comment: Marcus Estimated Nutritional Goals BEE in Kcals: Using Current wt Calories/Kcals/Kg 27-32 kcal/kg- using 61.3 kg Current body weight- sepsis Kcals Calculated ~5656-4150 kcal/day Protein: Using Current wt Protein g/k.2-1.5 gm/kg - Sepsis Protein Calculated ~75-92 gm/day Fluid: ml ~9622-7564 ml/day (1 ml/kcal) Nutritional Problem 2. Problem Problem Altered nutrition related lab values related to Etiology uncontrolled hyperglycemia aeb Signs/Symptoms: glucose 139-255, 1. Problem Problem Inadequate energy intake related to Etiology withholding of nutrition at this time with NPO diet order aeb Signs/Symptoms: meeting <25% of estimated nutrient needs. Intervention/Recommendation Comments 1. Due to hx dysphagia and Gtube, when medically appropriate, start Diabetisource AC at goal of 55 ml/hr to provide 1320 ml volume, 1584 kcal, 79 gm protein. 2. Adjust insulin regimen per MD for optimal glycemic control. Expected Outcomes/Goals Expected Outcomes/Goals meets >75% of estimated nutrient needs, improved skin integrity, nutrition related labs normalize, F/U HR 2-3 days 10/15-
[2017-10-17] MEDS ORDERED: Potassium Chloride Elixir 20 mEq /15 mL UDC GT PRN (09:25)
[2017-10-17] MEDS: POLYETHYLENE GLYCOL 3350 17 GM PACK PO SCH ×2 (09:33→17:02)
[2017-10-17] MEDS ORDERED: Potassium Chloride Elixir 20 mEq /15 mL UDC GT ONE (09:35)
--- NOTE | 2017-10-17 15:52 | Pathology Report ---
[id number] Collection Date: 10/16/2017 Surgeon: Dr. Gris Cook Specimen Description: 1. Antrum biopsy 2. Duodenal biopsy Gross Description: Part I: Received in formalin are two garcia soft tissue fragments ranging from 0.1 to 0.2 cm in greatest dimension. Totally submitted in one cassette labeled A. Gross Description: Part II: Received in formalin are two garcia soft tissue fragments ranging from 0.1 to 0.2 cm in greatest dimension. Totally submitted in one cassette labeled B. Microscopic Description: Part I: The histologic sections show gastric mucosa with chronic inflammation present consisting of lymphocytes and plasma cells. The Giemsa stain shows no evidence for Helicobacter pylori. Diagnosis: Part I: 1. Chronic gastritis, antrum biopsy. 2. The Giemsa stain is negative for Helicobacter pylori. Microscopic Description: Part II: The histologic sections show duodenal mucosa with intact intestinal villi, showing no evidence for villous abnormality. There is mild to moderate chronic inflammation present consisting of increased numbers of lymphocytes and plasma cells. Diagnosis: Part II: 1. Nonspecific chronic inflammation, duodenal biopsy. 2. There is no evidence for celiac disease/sprue. [facility]# [id number]
[2017-10-18] MEDS: INSULIN ASPART SLIDING SCALE 100 UNITS/ML UNIT SUBQ SCH ×2 (07:55→12:10)
[2017-10-18] MEDS ORDERED: Lactated Ringer 1,000 ML IV ONE (08:00)
[2017-10-18 08:04] LABS: % BASOPHILS 1.3 % (0.0-2.0); % EOSINOPHILS 2.1 % (0.0-5.0); % LYMPHOCYTES 14.5 % (20.0-50.0); % MONOCYTES 4.9 % (2.0-10.0); % NEUTROPHILS 77.2 % (40.0-80.0); BASOPHILE ABSOLUTE 0.1 Th/cumm (0-0.2); EOSINOPHILE ABSOLUTE 0.1 Th/cmm (0.1-0.4); HEMATOCRIT 28.5 % (41.0-60); HEMOGLOBIN 9.1 gm/dL (12-16); LYMPHOCYTE ABSOLUTE 0.7 Th/cmm (1.5-3.0); MEAN CORPUSCULAR HEMOGLOBIN 26.5 pg (27.0-31.0); MEAN CORPUSCULAR HGB CONC 31.9 pg (28.0-36.0); MEAN PLATELET VOLUME 8.5 fl; MONOCYTE ABSOLUTE 0.2 Th/cmm (0.3-1.0); NEUTROPHILE ABSOLUTE 3.9 Th/cmm (1.8-8.0); PLATELET COUNT 170 Th/cmm (150-400); RED BLOOD COUNT 3.44 Mil/cmm (3.80-5.20); RED CELL DISTRIBUTION WIDTH 23.1 % (11.5-20.0)
[2017-10-18 08:25] LABS: ANION GAP 11.9 (7.0-16.0); BUN - UREA NITROGEN 3 mg/dL (7-25); CALCIUM SERUM 6.7 mg/dL (8.6-10.3); CARBON DIOXIDE 19.5 mEq/L (21.0-31.0); CHLORIDE 113 mEq/L (98-107); CREATININE - SERUM 0.4 mg/dL (0.6-1.2); GLUCOSE 219 mg/dL (70-105); POTASSIUM SERUM 3.4 mEq/L (3.5-5.1); SODIUM SERUM 141 mEq/L (136-145)
[2017-10-18] MEDS ORDERED: Propofol 10 mg/mL 20mL Vial **SURGERY USE ONLY IV ONE (08:30)
[2017-10-18] MEDS: POLYETHYLENE GLYCOL 3350 17 GM PACK PO SCH (09:03)
--- NOTE | 2017-10-18 10:25 | Progress Notes ---
DATE: 10/13/2017 PROBLEM LIST: 1. Hyperglycemia, resolved. 2. Possibly GI bleeding. 3. 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 SYMPTOMS: Nil. MOTOR: Telemetry. No specific new symptomatology at this particular time. PHYSICAL EXAMINATION: VITAL SIGNS: The patient's recorded vitals: Temperature is 97.8, blood pressure is 120/54, saturation 99 on room air. NECK: Veins not visualized. CHEST: Shows diminished air entry. No other adventitious breath sound. HEART: Regular. LABORATORY DATA: White count is 5.2, hemoglobin 8.8. Potassium is 3.2. ASSESSMENT: The patient is clinically stable, appears to have still need to watch hemoglobin and continue low dose of Laxative, continue bolus feeding and go from there. [facility]# [id number]
[2017-10-18] MEDS ORDERED: Probiotic Screen MC PRN (12:15)
--- NOTE | 2017-10-18 12:59 | Infectious Disease Prog Note ---
Infectious Disease Subjective - Review of Systems Service Date: 10/18/17 Subjective: doing well. No fever. Infectious Disease Objective - Results Result Diagrams: 10/18/17 08:00 10/18/17 08:00 Recent Labs: Laboratory Last Values WBC 5.0 Th/cmm (4.8-10.8) 10/18/17 08:00 RBC 3.44 Mil/cmm (3.80-5.20) L 10/18/17 08:00 Hgb 9.1 gm/dL (12-16) L 10/18/17 08:00 Hct 28.5 % (41.0-60) L 10/18/17 08:00 MCV 83.0 fl (81-100) 10/18/17 08:00 MCH 26.5 pg (27.0-31.0) L 10/18/17 08:00 MCHC Differential 31.9 pg (28.0-36.0) 10/18/17 08:00 RDW 23.1 % (11.5-20.0) H 10/18/17 08:00 Plt Count 170 Th/cmm (150-400) 10/18/17 08:00 MPV 8.5 fl 10/18/17 08:00 Neutrophils % 77.2 % (40.0-80.0) 10/18/17 08:00 Lymphocytes % 14.5 % (20.0-50.0) L 10/18/17 08:00 Monocytes % 4.9 % (2.0-10.0) 10/18/17 08:00 Eosinophils % 2.1 % (0.0-5.0) 10/18/17 08:00 Basophils % 1.3 % (0.0-2.0) 10/18/17 08:00 PT 11.0 SECONDS (9.5-11.5) 10/16/17 04:30 INR 1.06 (0.5-1.4) 10/16/17 04:30 PTT (Actin FS) 23.9 SECONDS (26.0-38.0) L 10/16/17 04:30 Specimen Source Arterial 10/14/17 08:15 Sample Site RB 10/14/17 08:15 pH 7.44 (7.35-7.45) 10/14/17 08:15 pCO2 36.0 mmHg (35.0-45.0) 10/14/17 08:15 pO2 110.0 mmHg (80.0-100.0) H 10/14/17 08:15 HCO3 25.4 mEq/L (20.0-26.0) 10/14/17 08:15 Base Excess 0.6 mEq/L (-3.0-3.0) 10/14/17 08:15 O2 Saturation 98.0 % (92.0-100.0) 10/14/17 08:15 Joao Test NA 10/14/17 08:15 Vent Rate NA 10/14/17 08:15 Inspired O2 21 10/14/17 08:15 Tidal Volume NA 10/14/17 08:15 PEEP NA 10/14/17 08:15 Pressure (ins/psv/peep) NA 10/14/17 08:15 Critical Value SH 10/14/17 08:15 Sodium 141 mEq/L (136-145) 10/18/17 08:00 Potassium 3.4 mEq/L (3.5-5.1) L 10/18/17 08:00 Chloride 113 mEq/L (98-107) H 10/18/17 08:00 Carbon Dioxide 19.5 mEq/L (21.0-31.0) L 10/18/17 08:00 Anion Gap 11.9 (7.0-16.0) 10/18/17 08:00 BUN 3 mg/dL (7-25) L 10/18/17 08:00 Creatinine 0.4 mg/dL (0.6-1.2) L 10/18/17 08:00 Est GFR ( Amer) TNP 10/18/17 08:00 Est GFR (Non-Af Amer) [facility] 10/18/17 08:00 BUN/Creatinine Ratio 7.5 10/18/17 08:00 Glucose 219 mg/dL (70-105) H 10/18/17 08:00 POC Glucose 203 MG/DL (70 - 105) H 10/18/17 11:45 Hemoglobin A1c % 5.4 % (4.0-6.0) 10/13/17 08:30 Whole Bld Lactic Acid 1.91 mmol/L (0.60-1.99) 10/14/17 08:05 Calcium 6.7 mg/dL (8.6-10.3) L 10/18/17 08:00 Magnesium 1.7 mg/dL (1.9-2.7) L 10/16/17 04:30 Iron 17 ug/dL (27-139) L 10/13/17 08:30 TIBC 343 ug/dL (250-450) 10/13/17 08:30 Iron Saturation 5 % (15-55) L 10/13/17 08:30 Unsaturated IBC 326 ug/dL (118-369) 10/13/17 08:30 Ferritin 12 ng/mL (15-150) L 10/13/17 08:30 Total Bilirubin 0.4 mg/dL (0.3-1.0) 10/14/17 08:05 Direct Bilirubin 0.15 mg/dL (0.0-0.2) 10/14/17 08:05 AST 35 U/L (13-39) 10/14/17 08:05 ALT 29 U/L (7-52) 10/14/17 08:05 Alkaline Phosphatase 56 U/L (34-104) 10/14/17 08:05 Ammonia 57 umol/L (16-53) H 10/14/17 08:05 B-Natriuretic Peptide 118.0 pg/mL (5.0-100.0) H 10/13/17 08:30 Total Protein 4.9 gm/dL (6.0-8.3) L 10/14/17 08:05 Albumin 2.6 gm/dL (3.7-5.3) L 10/14/17 08:05 Globulin 2.3 gm/dL 10/14/17 08:05 Albumin/Globulin Ratio 1.1 (1.0-1.8) 10/14/17 08:05 Triglycerides 245 mg/dL (<150) H 10/13/17 08:30 Cholesterol 96 mg/dL (<200) 10/13/17 08:30 LDL Cholesterol Direct 40 mg/dL (75-193) L 10/13/17 08:30 HDL Cholesterol 27 mg/dL (23-92) 10/13/17 08:30 Lipase 42 U/L (11-82) 10/14/17 08:05 TSH 8.23 uIU/ml (0.34-5.60) H 10/13/17 08:30 Urine Source CATH 10/13/17 09:45 Urine Color YELLOW 10/13/17 09:45 Urine Clarity CLEAR (CLEAR) 10/13/17 09:45 Urine pH 7.0 (4.6 - 8.0) 10/13/17 09:45 Ur Specific [place] 1.010 (1.005-1.030) 10/13/17 09:45 Urine Protein NEGATIVE mg/dL (NEGATIVE) 10/13/17 09:45 Urine Glucose (UA) NEGATIVE mg/dL (NEGATIVE) 10/13/17 09:45 Urine Ketones NEGATIVE mg/dL (NEGATIVE) 10/13/17 09:45 Urine Blood NEGATIVE (NEGATIVE) 10/13/17 09:45 Urine Nitrate NEGATIVE (NEGATIVE) 10/13/17 09:45 Urine Bilirubin NEGATIVE (NEGATIVE) 10/13/17 09:45 Urine Urobilinogen 0.2 E.U./dL (0.2 - 1.0) 10/13/17 09:45 Ur Leukocyte Esterase NEGATIVE (NEGATIVE) 10/13/17 09:45 Urine RBC NONE SEEN /hpf (0-5) 10/13/17 09:45 Urine WBC NONE SEEN /hpf (0-5) 10/13/17 09:45 Ur Epithelial Cells NONE SEEN /lpf (FEW) 10/13/17 09:45 Urine Bacteria NONE SEEN /hpf (NONE SEEN) 10/13/17 09:45 Stool Occult Blood POSITIVE (NEGATIVE) H 10/14/17 07:00 Vancomycin Trough 12.3 ug/mL (10-20) 10/18/17 08:00 Helicobacter pylori Ab NEGATIVE (NEGATIVE) 10/16/17 10:50 Blood Type O POSITIVE 10/13/17 10:36 Antibody Screen NEGATIVE 10/13/17 10:36 Crossmatch See Detail 10/13/17 10:36 - Physical Exam Vitals and I&O: Vital Signs Temp 98 F 10/18/17 11:20 Pulse 87 10/18/17 11:20 Resp 17 10/18/17 11:20 BP 130/66 10/18/17 11:20 Pulse Ox 97 10/18/17 11:20 Intake & Output 10/17/17 10/18/17 10/18/17 18:59 06:59 18:59 Intake Total 675 150 400 Output Total 1350 900 Balance -675 150 -500 Weight (lbs) 56.382 kg 56.245 kg Intake: Intake, IV Amount 300 150 Piperacillin Sodium/ 50 150 Tazobact 3.375 gm In Sodium Chloride 0.9% 50 ml @ 100 mls/hr IV Q6HR [facility] Rx#:[id number] Vancomycin HCl 1 gm In 250 Dextrose 5% 250 ml @ 165 mls/hr IV Q24H [facility] Rx#: [id number] Tube Feeding 375 300 Other 100 Output: Urine 1350 900 Other: # Bowel Movements 2 1 Stool Characteristics Soft Soft Brown Black Black Active Medications: Current Medications Acetaminophen (Tylenol) 650 mg PO Q6H PRN PRN Reason: HEADACHE/TEMP ABOVE 100F Stop: 12/12/17 09:19 Magnesium Sulfate (Magnesium Sulfate Premix) 2 gm in 50 mls @ 25 mls/hr IV DAILY PRN PRN Reason: Magnesium level less than 1.6 Stop: 12/12/17 09:19 Piperacillin Sod/Tazobactam (Sod 3.375 gm/ Sodium Chloride) 50 mls @ 100 mls/ hr IV Q6HR [facility] Stop: 12/12/17 11:59 Last Infusion: 10/18/17 06:10 Dose: Infused Norepinephrine Bitartrate 4 mg (/ Dextrose) 254 mls @ 15.24 mls/hr IV TITR PRN ; Protocol; 4 MCG/MIN PRN Reason: BP MAINTENANCE (PER PROTOCOL) Stop: 12/14/17 10:17 Last Admin: 10/15/17 16:45 Dose: 2 mcg/min, 7.62 mls/hr Vancomycin HCl 1 gm/ Dextrose 250 mls @ 165 mls/hr IV Q24H [facility] Stop: 12/15/17 08:59 Last Admin: 10/18/17 10:31 Dose: 165 mls/hr Potassium Chloride 40 meq/Lidocaine HCl 25 mg/ Sodium Chloride 272.5 mls @ 68 mls/hr IV DAILY PRN PRN Reason: k level less than 3.2 Stop: 12/15/17 08:59 Last Admin: 10/16/17 16:19 Dose: 68 mls/hr Dextrose/Sodium Chloride (D5-0.45ns) 1,000 mls @ 70 mls/hr IV .[id number] [facility] Stop: 12/16/17 08:56 Last Admin: 10/17/17 09:33 Dose: 70 mls/hr Insulin Aspart (Novolog Insulin Sliding Scale) 0 units SUBQ ACHS CADE PRN Reason: Protocol Stop: 12/12/17 11:29 Last Admin: 10/18/17 12:10 Dose: 4 units Lactobacillus Rhamnosus (Culturelle 15b) 1 each PO DAILY [facility] Stop: 12/18/17 08:59 Magnesium Oxide (Mag-Oxide) 400 mg PO BID PRN PRN Reason: Mg less than 1.9 Stop: 12/12/17 09:19 Last Admin: 10/16/17 13:07 Dose: 400 mg Miscellaneous (Vancomycin Iv Per Pharmacy) 1 ea PRN PRN PRN Reason: PROTOCOL Stop: 12/12/17 09:17 Miscellaneous (Zosyn Iv Per Pharmacy) 1 [facility] PRN PRN PRN Reason: PROTOCOL Stop: 12/12/17 09:17 Miscellaneous (Vte [employer] Prophylaxis Screen/ Admission) 1 [facility] PRN PRN PRN Reason: PROTOCOL Stop: 12/12/17 13:59 Miscellaneous (Probiotic Screen) 1 [facility] PRN PRN PRN Reason: PROTOCOL Stop: 12/17/17 12:14 Ondansetron HCl (Zofran) 4 mg IVP Q6H PRN PRN Reason: Nausea / Vomiting Stop: 12/12/17 09:19 Pantoprazole Sodium (Protonix) 40 mg IVP BID [facility] Stop: 12/14/17 16:59 Last Admin: 10/18/17 09:03 Dose: 40 mg Polyethylene Glycol (Miralax) 17 gm PO BID [facility] Stop: 12/16/17 08:59 Last Admin: 10/18/17 09:03 Dose: 17 gm Potassium Chloride (Potassium Chloride Elixir) 40 meq GT DAILY PRN PRN Reason: PROTOCOL Stop: 12/16/17 09:24 Tramadol HCl (Ultram) 50 mg PO Q6HR PRN PRN Reason: Pain (Moderate) Stop: 12/15/17 20:18 Last Admin: 10/16/17 21:15 Dose: 50 mg General: no acute distress, well developed, well nourished HEENT: atraumatic, normocephalic, PERRLA Neck: supple, no thyromegaly Cardiovascular: S1S2, regular Lungs: clear to auscultation bilaterally, clear to percussion Abdomen: soft, no tender, no distended Extremities: no cyanosis, no clubbing, no edema Neurological: awake, alert, oriented Skin: intact - Procedures Procedures: Procedures Procedure Code Date BLOOD TRANSFUSION SERVICE 43663 10/13/17 COLONOSCOPY AND BIOPSY 83587 03/14/12 COLONOSCOPY W/LESION REMOVAL 54147 03/14/12 EGD BIOPSY SINGLE/MULTIPLE 83381 03/14/12 ENDO RECTUM POLYPECTOMY 48.36 03/14/12 ENDOSC POLYPECTOMY OF LG INTEST 45.42 03/14/12 ESOPHAGOGASTRODUODENOSCOPY [EGD] W/CLOSED BIOPSY 45.16 03/14/12 LESION REMOVAL COLONOSCOPY 44712 03/14/12 PACKED CELL TRANSFUSION 99.04 03/14/12 TRANSFUSE NONAUT RED BLOOD CELLS IN PERIPH VEIN, PERC 22892R4 10/13/17 Infectious Disease Assmt/Plan - Assessment Assessment: 1. Septic shock, improved. 2. Pneumonia, questionable. 3. Diabetes mellitus type, uncontrolled. 4. Dementia. 5. Azotemia. 6. Sacral wounds stage 2 small, no sign of infection. - Plan Plan: Change vancomycin and Zosyn to levaquin po for 5 days. Nutritional Asmnt/Malnutr-PDOC - Dietary Evaluation Malnutrition Findings (Please click <Entered> for more info): Nutritional Asmnt/Malnutrition Start: 10/13/17 13: 06 Text: Status: Complete Freq: Document 10/13/17 13:06 MMULSABINO (Rec: 10/13/17 13:17 [email or web address] HOLT- [id number]) Nutritional Asmnt/Malnutrition Patient General Information Nutritional Screening High Risk Consult Diagnosis Septic shock Pertinent Medical Hx/Surgical Hx diabetes, dyslipidemia, CAD, dementia Subjective Information Consult received for wound present on admissino and marcus scale <12. Patient admitted from [facility] with hyperglycemia (489 BG, then 533). Patient lying in bed at time of visit. Current Diet Order/ Nutrition Support NPO Patient / S.O Not Indicated Pertinent Medications NOvolog, Mag-oxide, abx, zofran Pertinent Labs 10/13: Na 151, BUN 91, glucose 139-255, AST 43, albumin 3.3, TAG 245 Nutritional Hx/Data Height 1.65 m Height (Calculated Centimeters) 165.1 Current Weight (lbs) 61.235 kg Weight (Calculated Kilograms) 61.2 Weight (Calculated Grams) 60680.0 [place] Body Weight 125 % [place] Body Weight 108 Body Mass Index (BMI) 22.4 Recent Weight Change No Weight Status Approriate GI Symptoms GI Symptoms None Last BM None noted since admission Difficult in: None Food Allergies No Cultural/Ethnic/Hindu Belief none indicated Skin Integrity/Comment: Marcus Estimated Nutritional Goals BEE in Kcals: Using Current wt Calories/Kcals/Kg 27-32 kcal/kg- using 61.3 kg Current body weight- sepsis Kcals Calculated ~1016-2160 kcal/day Protein: Using Current wt Protein g/k.2-1.5 gm/kg - Sepsis Protein Calculated ~75-92 gm/day Fluid: ml ~3589-2657 ml/day (1 ml/kcal) Nutritional Problem 2. Problem Problem Altered nutrition related lab values related to Etiology uncontrolled hyperglycemia aeb Signs/Symptoms: glucose 139-255, 1. Problem Problem Inadequate energy intake related to Etiology withholding of nutrition at this time with NPO diet order aeb Signs/Symptoms: meeting <25% of estimated nutrient needs. Intervention/Recommendation Comments 1. Due to hx dysphagia and Gtube, when medically appropriate, start Diabetisource AC at goal of 55 ml/hr to provide 1320 ml volume, 1584 kcal, 79 gm protein. 2. Adjust insulin regimen per MD for optimal glycemic control. Expected Outcomes/Goals Expected Outcomes/Goals meets >75% of estimated nutrient needs, improved skin integrity, nutrition related labs normalize, F/U HR 2-3 days 10/15-
--- NOTE | 2017-10-18 20:45 | Discharge Summary ---
DATE OF DISCHARGE: 10/18/2017 CAUSE OF ADMISSION: The patient is an 86-year-old female who [facility]. She has a history of diabetes along with dysphagia, anxiety disorder, mood disorder, dementia and dyslipidemia. She was found to be extremely lethargic at the facility. Her blood sugars were over 500 and she declined significantly with her mood and physical status as well. She was sent to the hospital where she was found to be in sepsis. ADMITTING DIAGNOSES: 1. Septic shock. 2. Hypovolemic hypernatremia. 3. Diabetes mellitus, out of control. 4. Mild malnutrition. 5. Metabolic encephalopathy. 6. Coronary artery disease. 7. Dyslipidemia. 8. Anemia of chronic illness. DISCHARGE DIAGNOSES: 1. Septic shock. 2. Hypovolemic hypernatremia. 3. Diabetes mellitus, out of control. 4. Mild malnutrition. 5. Severe anemia with the possible gastrointestinal bleed. 6. Gastric and duodenal ulcer. 7. Metabolic encephalopathy. 8. Coronary artery disease. 9. Dyslipidemia. 10. Hypokalemia. 11. Hypocalcemia. SUMMARY OF HOSPITAL COURSE: The patient was seen by ID, GI and Pulmonary. She was given K riders multiple times. She received aggressive hydration. She was ultimately placed on Levophed drip on 10/15/2017 and discontinued on the a.m. of 2017. Reduced IV rate once her G-tube feedings were started. ID and Pulmonary and GI saw the patient. Stool OB was positive. All anticoagulation was held. GI did EGD on 10/16/2017. She was found to have gastric and duodenal ulcers. She has been afebrile. The blood pressure is improved. She was moved out of ICU on 10/17/2017. She received one unit PRBC, which was ordered by the ER physician. G-tube feedings were resumed on 10/16/2017. She is doing much better. She is talking now. I also met with the daughter at the bedside and she is pleased with the care. PHYSICAL EXAMINATION: VITAL SIGNS: Were the follows: Temperature 97.8 degrees, heart rate is 86, respirations 17 and blood pressure 119/58. Currently, in no pain. GENERAL: No acute distress, awake. She is alert to name. HEENT: No acute issues. NECK: Trachea is midline. CARDIOVASCULAR: Regular rate and rhythm. ABDOMEN: Nontender and nondistended. SKIN: No rashes. LABORATORY DATA: White count is 5.0, hemoglobin is 9.1 and platelet count 170,000. INR is 1.06. Labs from 10/17/2017: Chemistry panel shows sodium 143, potassium 3.2, chloride 117, bicarbonate 19.6, BUN 3, creatinine 0.4 and glucose is 201. Please note that the patient did receive 40 mEq of potassium on 10/17/2017, but today's chemistry panel is pending. Calcium is 6.1. DISPOSITION: She is being [facility] to [facility]. MEDICATIONS: All medications reviewed and reconciled. PROCEDURES: EGD. CONSULTS: 1. Dr. Lemos's group for GI. 2. Dr. Hirsch for Pulmonary. 3. Dr. Roman Hirsch for ID. Also, the patient has been on IV antibiotics. Blood cultures were negative. She has been on vancomycin and Zosyn, which will be stopped upon discharge. JOB# [id number]
[2017-10-19] MEDS ORDERED: Lactobacillus Rhamnosus GG 15 Billion CFU CAP.SPRINK PO SCH (09:00)
== END 2017-10-18 16:54 | disposition home or self-care (01) | DRG 871 ==
LOC: ER 08:02 → ICU 09:45 → MSI 10-17 15:54 → TELE 10-17 15:59 → MSI 10-18 14:04
PROVIDERS: ADMIT General Practice; ATTEND General Practice
PROC: 30233N1 Transfusion of Nonautologous Red Blood Cells into Peripheral Vein, Percutaneous Approach (ICD-10-PCS; principal; 2017-10-13)
PROC: 0DB98ZX Excision of Duodenum, Via Natural or Artificial Opening Endoscopic, Diagnostic (ICD-10-PCS; 2017-10-16)
PROC: 0DB68ZX Excision of Stomach, Via Natural or Artificial Opening Endoscopic, Diagnostic (ICD-10-PCS; 2017-10-16)
DX: A41.9 Sepsis, unspecified organism (principal); R65.21 Severe sepsis with septic shock; J96.00 Acute respiratory failure, unspecified whether with hypoxia or hypercapnia; J69.0 Pneumonitis due to inhalation of food and vomit; G93.41 Metabolic encephalopathy; G93.49 Other encephalopathy; K25.4 Chronic or unspecified gastric ulcer with hemorrhage; L89.152 Pressure ulcer of sacral region, stage 2; K26.4 Chronic or unspecified duodenal ulcer with hemorrhage; E87.0 Hyperosmolality and hypernatremia; E44.1 Mild protein-calorie malnutrition; G82.20 Paraplegia, unspecified; C43.9 Malignant melanoma of skin, unspecified; R13.10 Dysphagia, unspecified; E11.649 Type 2 diabetes mellitus with hypoglycemia without coma; I25.10 Atherosclerotic heart disease of native coronary artery without angina pectoris; E78.5 Hyperlipidemia, unspecified; M62.81 Muscle weakness (generalized); I11.9 Hypertensive heart disease without heart failure; E03.9 Hypothyroidism, unspecified; E86.0 Dehydration; F41.9 Anxiety disorder, unspecified; F39 Unspecified mood [affective] disorder; D63.8 Anemia in other chronic diseases classified elsewhere; E11.65 Type 2 diabetes mellitus with hyperglycemia; G30.9 Alzheimer's disease, unspecified; F02.80 Dementia in other diseases classified elsewhere, unspecified severity, without behavioral disturbance, psychotic disturbance, mood disturbance, and anxiety; K56.41 Fecal impaction; E87.6 Hypokalemia; M81.0 Age-related osteoporosis without current pathological fracture; E83.51 Hypocalcemia; S31.000A Unspecified open wound of lower back and pelvis without penetration into retroperitoneum, initial encounter; Z88.5 Allergy status to narcotic agent; Z74.01 Bed confinement status; Z88.6 Allergy status to analgesic agent; Z86.73 Personal history of transient ischemic attack (TIA), and cerebral infarction without residual deficits; Z93.1 Gastrostomy status; Z68.20 Body mass index [BMI] 20.0-20.9, adult; Z90.49 Acquired absence of other specified parts of digestive tract
CPT/HCPCS: 36415-UA; 36600-90; 71045-TC; 80048-TC; 80053-TC; 80061-TC; 80076-TC; 80202-TC; 81001-TC; 82140-TC; 82248-TC; 82270-TC; 82728-90; 82803-TC; 82948-90; 83036-90; 83540-90; 83550-90; 83605; 83690-TC; 83735-TC; 83880-TC; 84443-TC; 85025-TC; 85610-TC; 86850-TC; 86900-TC; 86901-TC; 86922-TC; 87086-90; 87338-TC; 88305-90; 88312-90; 93005; 94760; 96375; C9113; J1580; J1815; J2001; J2405; J2543; J2704; J3370; J3480; J7030; J7040; P9016; X6452; Z7610